=== PATIENT | male | born 1965 | race Caucasian/White ===

== ENCOUNTER → 2018-07-25 | Outpatient (CLI) | payer OTHER ==
[2018-07-25] MEDS: DIATRIZOATE MEGLUMINE 18% 300 ML SOLUTION. PO ONE (10:12)
--- NOTE | 2018-07-25 10:57 | RAD ---
Voiding cystourethrogram, 07/25/2018: History: Hematuria, bladder cramping A Henley catheter was placed in the bladder under aseptic conditions by nursing personnel. Contrast was then infused through the catheter into the bladder via gravity. Appropriate digital imaging was then obtained during filling and voiding. 2.4 minutes of fluoroscopy time was utilized. 12 static and dynamic fluoroscopic sequences were recorded. There is mild bladder wall irregularity primarily along the dome of the bladder. No discrete bladder mass is seen. There was no vesicoureteral reflux upon filling or voiding. The prostatic urethra is unremarkable. There is mild narrowing of the membranous urethra as it passes through the urogenital diaphragm. This is not unusual. The anterior urethra is widely patent. After voiding on the fluoroscopic table there was a moderate volume of residual urine in the bladder. The patient was then sent to the bathroom where he was able to nearly completely empty his bladder. The post voiding view demonstrates surgical clips in the scrotum, presumably due to a previous vastectomy. IMPRESSION: 1. Mild mural irregularity along the superior wall of the urinary bladder which may be inflammatory. Given the patient's history of hematuria, cystoscopic evaluation should be considered to exclude neoplasm. 2. Mild narrowing of the membranous urethra of doubtful significance.
== END | disposition home or self-care (01) ==
LOC: RAD 08:35
PROVIDERS: ATTEND Family Medicine
DX: N32.89 Other specified disorders of bladder (principal)
CPT/HCPCS: 74455

== ENCOUNTER 2018-08-19 10:22 | Outpatient (CLI) | payer OTHER ==
[~2018-08-19] VITALS: Ht 172.7 cm; Wt 66.2 kg
[~2018-08-19 10:22] MED LIST: ALLO100T PO; ASPI81TA50 PO; COLC0.6T34 PO; INDO50CA5 PO; LACT1CAP8 PO; METO50TA29 PO; TELM80TA PO; VERA240C2 PO
[2018-08-19 11:29] VITALS: BP 85/61
[2018-08-19] MEDS ORDERED: IOHEXOL 240 MG/ML 50ML VIAL. ONE (12:05)
[2018-08-19] MEDS ORDERED: LIDOCAINE WITH 8.4% SOD BICARB 3 ML DISP.SYRIN. INJ ONE (12:15)
[2018-08-19] MEDS ORDERED: LIDOCAINE WITH 8.4% SOD BICARB 3 ML DISP.SYRIN. ONE (12:15)
[2018-08-19] MEDS ORDERED: IOHEXOL 240 MG/ML 50ML VIAL. IJ ONE (12:45)
--- NOTE | 2018-08-20 12:21 | RAD ---
08/19/2018 1. Abscessogram 2. Replacement size of pelvic drainage catheter Discussion: The risks and benefits of the procedure were discussed the patient. Informed consent was obtained. Timeout procedure was performed. The patient was placed in the supine position on fluoroscopy table. The anterior pelvis was prepped and draped using sterile barrier technique. 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 The pre-existing drainage catheter has been intermittently clogging and leaking around the drain. Fluoroscopically the drain is normal in position. Its position was confirmed with CT scan. Recurrent gas and air within the collection. Gas is present within the collection prior to drain placement and remains concerning for fistula to the underlying bowel. Despite multiple attempts by him he has been unable to see urologists in the interim since discharge. A small amount of contrast administered into the drain delineating the cavity. A guidewire was advanced into the cavity over which the pre-existing drain was removed. Following dilatation a 14 Y[place]ut drainage catheter was placed. Its position was confirmed with contrast fluoroscopically. The new catheter was used to aspirate approximately 50 cc of turbid fluid. The drain was secured in place and sterile dressings were applied. Fluoroscopy time: 1.1 minutes. Dose area product: 3 gycm2 Impression: Exchange of drainage catheter, now 14 Y[place]ut in size. 50 cc of turbid fluid was aspirated. No immediate complications were identified. Plan is for patient to follow-up with urology at . His appointment is scheduled for September, will attempt to facilitate earlier visit. PQRS Compliance Statement: One or more of the following individualized dose reduction techniques were utilized for this examination: 1. Automated exposure control 2. Adjustment of the mA and/or kV according to patient size 3. Use of iterative reconstruction technique
== END 2018-08-19 12:48 | disposition home or self-care (01) ==
LOC: INTRAD 10:22
PROVIDERS: ATTEND Surgery
DX: T83.038A Leakage of other urinary catheter, initial encounter (principal); Y83.8 Other surgical procedures as the cause of abnormal reaction of the patient, or of later complication, without mention of misadventure at the time of the procedure; Y92.89 Other specified places as the place of occurrence of the external cause
CPT/HCPCS: 49423; 49424; 75984; 76080; C1729; C1894; Q9966

== ENCOUNTER → 2020-05-21 | Outpatient (CLI) | payer OTHER ==
[~2020-05-21] MED LIST changes: +INDO50CA15 PO; -INDO50CA5 PO
== END | disposition home or self-care (01) ==
LOC: LAB 14:15
PROVIDERS: ATTEND Surgery
DX: Z01.818 Encounter for other preprocedural examination (principal); Z11.59 Encounter for screening for other viral diseases; C44.91 Basal cell carcinoma of skin, unspecified
CPT/HCPCS: U0003-CS

== ENCOUNTER 2020-05-25 08:36 | Day surgery (SDC) | payer OTHER ==
[~2020-05-25] VITALS: Ht 167.6 cm; Wt 65.5 kg
[~2020-05-25 08:36] MED LIST changes: +LIDOCAINE 1%/EPI 1:100,000 20 ML VIAL. ONE
[2020-05-25] MEDS ORDERED: IV RINGERS,LACTATED 1000ML 1,000 ML IV SCH (09:30)
[2020-05-25] MEDS ORDERED: LIDOCAINE 2% PF 5 ML VIAL. ONE (09:42)
[2020-05-25] MEDS ORDERED: ONDANSETRON PF 4 MG/2 ML VIAL. ONE (09:42)
[2020-05-25] MEDS ORDERED: DEXAMETHASONE SOD PHOS 4 MG/ML VIAL ONE (09:42)
[2020-05-25] MEDS ORDERED: PROPOFOL 10 MG/ML (20ML) VIAL. IV ONE ×2 (09:42→13:22)
[2020-05-25] MEDS ORDERED: MIDAZOLAM HCL/PF 2 MG/2 ML VIAL. ONE (09:45)
--- NOTE | 2020-05-25 13:48 | PDOC4 ---
Operative Note Operative Note Operative Note: Preoperative Diagnosis: Left shoulder basal cell carcinoma Postoperative Diagnosis: Same Procedure: Excision of left shoulder basal cell carcinoma, 4 X 2.5 cm excised Surgeon: Demarco Anesthesia: Local MAC EBL: 10 mL Specimen: Left shoulder basal cell, stitch at superior margin Drains: None Complications: None Indication: The patient is a 54-year-old male who recently underwent a punch biopsy of a left shoulder skin lesion. The pathology confirmed a basal cell carcinoma and he was referred for excision. The plan is for excision of the lesion with clear margins. The risks of surgery were discussed. The risks include bleeding, infection, pain, scar tissue, potential need for additional surgery or procedure. He understands and would like to proceed. Description: The patient was taken the operating room and placed supine on the operating bed. Monitored anesthesia care was provided. The anterior left shoulder was prepped with ChloraPrep and draped in a standard surgical manner. The skin of the area was infiltrated with 1% lidocaine with epinephrine. An elliptical incision was made around the skin lesion using a scalpel. Care was taken to ensure fairly wide margins of the lesion. Sharp dissection was used for full-thickness excision of the involved specimen. The excised lesion measu red 4 x 2.5 cm. A stitch was used to negin the superior margin and it was sent to pathology for evaluation. Hemostasis was achieved with cautery. The skin was reapproximated with interrupted 4-0 nylon sutures. A sterile dressing was then applied. The patient tolerated the procedure well and was sent to the recovery room in stable condition. At the end of the case all counts were correct. NICHO WYLIE MD May 25, 2020 13:48
--- NOTE | 2020-05-25 13:50 | DISCH ---
DISCHARGE INSTRUCTIONS Condition on Discharge Condition on Discharge: Stable Activity After Discharge Activity Instructions for Disc: Resume previous activity Driving Instructions after Dis: Other, see below (no driving if taking pain meds) Diet after Discharge Diet after Discharge: Regular Wound Incision Care Wound/Incision Care: Other, see below (keep dressing clean and dry X 4 days, may then remove and shower, reapply as necessary) Follow-Up Follow up with: Dr Wylie in office in 1 week, call for appt [phone] NICHO WYLIE MD May 25, 2020 13:50
[2020-05-25 14:05] VITALS: BP 161/89
--- NOTE | 2020-05-26 17:06 | PATHOLOGY ---
[facility] Accession Number: [id number] . 01 Material submitted: . shoulder - LEFT SHOULDER SKIN LESION. Modifiers: left . 01 Clinical history: . Basal cell carcinoma . 02 Diagnosis: Skin and subcutaneous tissue, left shoulder lesion excision: - Basal cell carcinoma, superficial subtype. - Inked margins of excision free of neoplasm. - Focal dermal scarring and foreign body giant cell reaction consistent with previous biopsy site. (JPM:jacques; 05/26/2020) MBR 05/26/2020 1553 Local . 02 Electronically signed: . Cliff Martinez MD, Pathologist NPI- [id number] . 01 Gross description: . The specimen is received in formalin, labeled "Jaylyn Vazquez, left shoulder, stitch at superior margin". Received is an oriented ellipse of skin measuring 3.6 x 1.7 x 0.5 cm in greatest dimensions with a suture placed along one edge designating this as the superior margin (12:00). The surgical margins are inked as follows: 12 to 3:00-yellow, 3 to 9:00-black, and 9 to 12:00-blue. The epidermal surface displays a well-circumscribed, flat, flaky and pale oviedo lesion measuring 0.7 x 0.7 cm. The specimen is sectioned into 11 pieces and entirely submitted in cassettes A1 through A4, with the 3 and 9:00 aspects placed in cassette A4. (CAA; 05/25/2020) QAC/QAC 05/25/2020 1746 Local . 02 Pathologist provided ICD-10: C44.619 . 02 CPT . 528776 Specimen Comment: A courtesy copy of this report has been sent to [phone], [phone] Specimen Comment: [id number] Specimen Comment: Report sent to / DR ABDI Performed at: [address] [facility] [address], [place] [id number] MD Luiz Jansen MD Phone: [phone] Performed at: 02 [facility] [place] [address] [place], [place] [id number] MD Cliff Martinez MD Phone: [phone]
== END 2020-05-25 14:42 | disposition home or self-care (01) ==
LOC: SURG 08:36
PROVIDERS: ATTEND Surgery
DX: C44.619 Basal cell carcinoma of skin of left upper limb, including shoulder (principal); I10 Essential (primary) hypertension; Z90.49 Acquired absence of other specified parts of digestive tract; Z72.89 Other problems related to lifestyle; Z98.52 Vasectomy status
CPT/HCPCS: 11606; J0696; J2250; J2704; J3490; 88305; J1100; J2405

== ENCOUNTER 2022-03-02 10:02 | Inpatient (IN) | payer OTHER ==
[~2022-03-02] VITALS: Ht 170.2 cm; Wt 65.5 kg
[~2022-03-02 10:02] MED LIST changes: -LIDOCAINE 1%/EPI 1:100,000 20 ML VIAL. ONE
--- NOTE | 2022-03-02 10:49 | PHYS DOC ---
Past Medical History Past Medical History: Diverticulitis, GI Bleed, Hypertension, P.U.D., Renal Failure Additional Past Medical Histor: Gout Past Surgical History: Other Additional Past Surgical Histo: CYST REMOVAL, BLADDER SX, bowel resection with reversal Smoking Status: Never Smoker Alcohol Use: Sober Additional Information: Pt states sober x 14 weeks. General Adult EDM: Chief Complaint: HAND PROBLEM HPI: HPI: Patient is a 56-year-old male who presents today with right hand pain. While the nursing staff was doing the triage assessment of this patient it was found that the heart patient's heart rate was in the 120s to 130s, patient was then moved to room and placed on the monitoring and evaluation advisor. Patient states that his hand pain started on Sunday and that he has had no fever and chills related to it he says is related to his gout. But after talking with the patient further come to find out the patient was admitted to [facility] on January 23, 2022 after syncopal episode and patient was found to have a bleeding ulcer, he states that while in the hospital he required an EGD, and transfusions x2 units. Patient states he was also in the intensive care unit for couple days and intubated at that time. Patient states he saw his primary care physician last week Dr. Jacobs and his medications were adjusted due to his low blood pressures. Review of Systems: Review of Systems: Constitutional: Denies fever or chills. [] Eyes: Denies change in visual acuity. [] HENT: Denies nasal congestion or sore throat. [] Respiratory: Denies cough or shortness of breath. [] Cardiovascular: Denies chest pain or edema. [] GI: Denies abdominal pain, nausea, vomiting, bloody stools or diarrhea. [] : Denies dysuria. [] Musculoskeletal: Left hand pain and swelling Integument: Denies rash. [] Neurologic: Denies headache, focal weakness or sensory changes. [] Endocrine: Denies polyuria or polydipsia. [] Lymphatic: Denies swollen glands. [] Psychiatric: Denies depression or anxiety. [] Heart Score: C/O Chest Pain: No Risk Factors: Risk Factors: DM, Current or recent (<one month) smoker, HTN, HLP, family history of CAD, obesity. Risk Scores: Score 0 - 3: 2.5% MACE over next 6 weeks - Discharge Home Score 4 - 6: 20.3% MACE over next 6 weeks - Admit for Clinical Observation Score 7 - 10: 72.7% MACE over next 6 weeks - Early Invasive Strategies Allergies: Allergies: Allergies Coded Allergies Type Severity Reaction Last Updated Verified No Known Drug Allergies 05/25/20 No Physical Exam: PE: Constitutional: Well developed, well nourished, no acute distress, non-toxic appearance. [] HENT: Normocephalic, atraumatic, bilateral external ears normal, oropharynx moist, no oral exudates, nose normal. [] Eyes: PERRLA, EOMI, conjunctiva normal, no discharge. [] Neck: Normal range of motion, no tenderness, supple, no stridor. [] Cardiovascular:Heart rate regular rhythm, no murmur [] Lungs & Thorax: Bilateral breath sounds clear to auscultation [] Abdomen: Bowel sounds normal, soft, no tenderness, no masses, no pulsatile masses, well-healed scar from the umbilicus to the symphysis pubis noted Skin: Warm, dry, no erythema, no rash. [] Back: No tenderness, no CVA tenderness. [] Extremities: Right hand is swollen and reddened along the metacarpal joints, patient has decreased range of motion due to pain and swelling, cap refill is less than 2 seconds sensory is intact distal to the swelling and pain, peripheral pulses are 2+ Neurologic: Alert and oriented X 3, normal motor function, normal sensory function, no focal deficits noted. [] Psychologic: Affect normal, judgement normal, mood anxious. [] Current Patient Data: Labs: Laboratory Tests Test 03/02/22 11:14 White Blood Count 10.4 x10^3/uL Red Blood Count 3.08 x10^6/uL Hemoglobin 9.0 g/dL Hematocrit 27.4 % Mean Corpuscular Volume 89 fL Mean Corpuscular Hemoglobin 29 pg Mean Corpuscular Hemoglobin Concent 33 g/dL Red Cell Distribution Width 18.6 % Platelet Count 262 x10^3/uL Neutrophils (%) (Auto) 84 % Lymphocytes (%) (Auto) 8 % Monocytes (%) (Auto) 7 % Eosinophils (%) (Auto) 1 % Basophils (%) (Auto) 1 % Neutrophils # (Auto) 8.7 x10^3/uL Lymphocytes # (Auto) 0.8 x10^3/uL Monocytes # (Auto) 0.7 x10^3/uL Eosinophils # (Auto) 0.1 x10^3/uL Basophils # (Auto) 0.1 x10^3/uL Sodium Level 137 mmol/L Potassium Level 4.0 mmol/L Chloride Level 101 mmol/L Carbon Dioxide Level 22 mmol/L Anion Gap 14 Blood Urea Nitrogen 19 mg/dL Creatinine 1.7 mg/dL Estimated GFR (Cockcroft-Gault) 41.6 BUN/Creatinine Ratio 11 Glucose Level 111 mg/dL Lactic Acid Level 2.6 mmol/L Uric Acid 11.0 mg/dL Calcium Level 10.1 mg/dL Total Bilirubin 0.8 mg/dL Aspartate Amino Transf (AST/SGOT) 9 U/L Alanine Aminotransferase (ALT/SGPT) 10 U/L Alkaline Phosphatase 107 U/L Troponin I High Sensitivity 7 ng/L Total Protein 6.9 g/dL Albumin 2.6 g/dL Albumin/Globulin Ratio 0.6 Current Medications Medications (Trade) Dose Ordered Sig/Galdino Route PRN Reason Start Time Stop Time Status Last Admin Dose Admin Sodium Chloride 1,000 ml @ 999 mls/hr 1X ONCE IV 03/02/22 12:15 03/02/22 13:15 03/02/22 12:28 Fentanyl Citrate (Fentanyl 2ml Vial) 50 mcg 1X ONCE IVP 03/02/22 12:45 03/02/22 12:46 03/02/22 12:29 Vital Signs: Vital Signs Date Time Temp Pulse Resp B/P (MAP) Pulse Ox O2 Delivery O2 Flow Rate FiO2 03/02/22 12:30 116 18 113/84 (94) 100 Room Air 03/02/22 12:29 18 98 03/02/22 12:00 115 18 113/81 (92) 100 Room Air 03/02/22 11:30 114 18 111/85 (94) 100 Room Air 03/02/22 11:00 119 18 119/82 (94) 100 Room Air 03/02/22 10:32 121 20 115/79 (91) 100 Room Air 03/02/22 10:06 98.9 154 22 110/80 (90) 96 Room Air 98.9 Vital Signs Date Time Temp Pulse Resp B/P (MAP) Pulse Ox O2 Delivery O2 Flow Rate FiO2 03/02/22 12:29 18 98 03/02/22 10:32 121 20 115/79 (91) 100 Room Air 03/02/22 10:06 98.9 154 22 110/80 (90) 96 Room Air 98.9 Vital Signs Date Time Temp Pulse Resp B/P (MAP) Pulse Ox O2 Delivery O2 Flow Rate FiO2 03/02/22 10:06 98.9 154 22 110/80 (90) 96 Room Air 98.9 EKG: EKG: EKG done at [address] Mills at 1029 shows sinus tachycardia with no ectopy at a rate of 123 with a SD interval of 168 ms with a QTC of 414 no STEMI [] Radiology/Procedures: Radiology/Procedures: REASON: hand swelling. HX OF GOUT PROCEDURE: HAND LEFT 3V EXAM: PA, oblique and lateral views left hand DATE: 03/02/2022 10:40 AM INDICATION: Reason: hand swelling. HX OF GOUT / Spl. Instructions: / History: . COMPARISON: No Prior FINDINGS: No evidence of acute fracture or dislocation. Diffuse soft tissue swelling about the left long, index, and ring fingers. Advanced thumb CMC DJD. Scattered IP joint degenerative changes. Small juxta-articular erosion is suspected at the distal phalanx left index finger. Old/healed fracture fifth metacarpal shaft. Atherosclerotic vascular calcifications are seen. IMPRESSION: No acute fracture or dislocation. Diffuse soft tissue swelling about the digits as well as the extra articular erosion at the middle phalanx left index finger could be seen with crystalline arthropathy such as gout. Electronically signed by: Richard Lundy MD (03/02/2022 11:54 AM) [id number] REASON: tachycardia PROCEDURE: CHEST AP ONLY Single AP view of the chest. Comparison: 08/10/2018. Indication: Tachycardia Findings: Healed left midclavicular fractures are identified. Stable degenerative changes of bilateral shoulders. The heart is enlarged but stable. There is no pneumothorax or effusion. No air space or interstitial disease. Impression: 1. No acute cardiopulmonary process. Electronically signed by: Jayjay Barros MD (03/02/2022 11:43 AM) [id number] [] Course & Med Decision Making: Course & Med Decision Making Pertinent Labs and Imaging studies reviewed. (See chart for details) 1240 reviewed radiological and laboratory results with patient did express concern about the possibility of having cellulitis in his left hand, and admitting the patient for IV antibiotics is my recommendation, he is agreeable to the plan, Dr. Meadows was paged. Chiki Disclaimer: Chiki Disclaimer: This electronic medical record was generated, in whole or in part, using a voice recognition dictation system. Departure Departure Impression: Primary Impression: Cellulitis Qualified Codes: L03.114 - Cellulitis of left upper limb Admitting Physician: HIMS Condition: STABLE Referrals: NICOLETTE ABDI MD (PCP) NITA PALACIOS APRN Mar 02, 2022 10:49
[2022-03-02 11:25] LABS: BASO # 0.1 x10^3/uL (0.0-0.2); BASO % 1 % (0-3); EOS # 0.1 x10^3/uL (0.0-0.7); EOS % 1 % (0-3); HEMATOCRIT 27.4 % (39.0-53.0); LYMPH # 0.8 x10^3/uL (1.0-4.8); LYMPH % 8 % (24-48); MEAN CORPUSCULAR HEMOGLOBIN 29 pg (25-35); MEAN CORPUSCULAR HGB CONC 33 g/dL (31-37); MEAN CORPUSCULAR VOLUME 89 fL (79-100); MONO # 0.7 x10^3/uL (0.0-1.1); MONO % 7 % (0-9); NEUT # 8.7 x10^3/uL (1.8-7.7); NEUT % 84 % (31-73); PLATELET COUNT 262 x10^3/uL (140-400); RED BLOOD COUNT 3.08 x10^6/uL (4.30-5.70); RED CELL DISTRIBUTION WIDTH 18.6 % (11.5-14.5); WHITE BLOOD COUNT 10.4 x10^3/uL (4.0-11.0)
[2022-03-02 11:35] LABS: CALCIUM 10.1 mg/dL (8.5-10.1); CREATININE 1.7 mg/dL (0.7-1.3); GFR 41.6
[2022-03-02 11:41] LABS: ALBUMIN 2.6 g/dL (3.4-5.0); ALBUMIN/GLOBULIN RATIO 0.6 (1.0-1.7); TOTAL BILIRUBIN 0.8 mg/dL (0.2-1.0); TOTAL PROTEIN 6.9 g/dL (6.4-8.2)
--- NOTE | 2022-03-02 11:45 | RAD ---
Single AP view of the chest. Comparison: 08/10/2018. Indication: Tachycardia Findings: Healed left midclavicular fractures are identified. Stable degenerative changes of bilateral shoulder s. The heart is enlarged but stable. There is no pneumothorax or effusion. No air space or interstit ial disease. Impression: 1. No acute cardiopulmonary process. Electronically signed by: Jayjay Barros MD (03/02/2022 11:43 AM) [id number]
--- NOTE | 2022-03-02 11:56 | RAD ---
EXAM: PA, oblique and lateral views left hand DATE: 03/02/2022 10:40 AM INDICATION: Reason: hand swelling. HX OF GOUT / Spl. Instructions: / History: . COMPARISON: No Prior FINDINGS: No evidence of acute fracture or dislocation. Diffuse soft tissue swelling about the left long, index , and ring fingers. Advanced thumb CMC DJD. Scattered IP joint degenerative changes. Small juxta-isabel cular erosion is suspected at the distal phalanx left index finger. Old/healed fracture fifth metacar pal shaft. Atherosclerotic vascular calcifications are seen. IMPRESSION: No acute fracture or dislocation. Diffuse soft tissue swelling about the digits as well as the extra articular erosion at the middle ph alanx left index finger could be seen with crystalline arthropathy such as gout. Electronically signed by: Richard Lundy MD (03/02/2022 11:54 AM) [id number]
--- NOTE | 2022-03-02 12:12 | EKG ---
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
[2022-03-02] MEDS ORDERED: IV NORMAL SALINE 1000ML BAG 1,000 ML IV ONE ×3 (12:15→15:00)
[2022-03-02] MEDS ORDERED: fentaNYL PF VIAL 100 MCG/2 ML VIAL IVP ONE (12:45)
[2022-03-02] MEDS ORDERED: VANCOMYCIN 1.25 GM in IV NORMAL SALINE 250ML 250 ML IV ONE (13:00)
[2022-03-02] MEDS ORDERED: fentaNYL PF VIAL 100 MCG/2 ML VIAL IVP PRN (13:00)
--- NOTE | 2022-03-02 14:57 | PDOC1 ---
History and Physical Date of Admission Date of Admission DATE: 03/02/22 TIME: 14:48 Source Source: Chart review, Patient History of Present Illness History of Present Illness Mr. Vazquez, is a 56-year-old male admit with severe right hand and wrist pain. HAs known gout, takes no meds, He reports he was admitted to [facility] on January 23, 2022 after syncopal episode and patient was found to have a bleeding ulcer transfusions x2 units but was not D C onany new meds.s he compplains of leg weakness and would like an external cath placed, I asked him to try PT. He follows with Dr. Jacobs and his medications were adjusted due to his low bloo d pressures. 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, Past Medical History Cardiovascular: HTN Pulmonary: No pertinent hx GI: No pertinent hx Heme/Onc: No pertinent hx Psych: No pertinent hx Musculoskeletal: low back pain Infectious disease: No pertinent hx Renal/: No pertinent hx Past Surgical History Past Surgical History: Other Family History Family History: Hypertension Social History Smoke: No ALCOHOL: none Drugs: None Current Problem List Problem List Problems Medical Problems: (1) Cellulitis Status: Acute Current Medications Current Medications Current Medications Sodium Chloride 1,000 ml @ 999 mls/hr 1X ONCE IV Last administered on 03/02/22at 12:28; Start 03/02/22 at 12:15; Stop 03/02/22 at 13:15; Status DC Fentanyl Citrate (Fentanyl 2ml Vial) 50 mcg 1X ONCE IVP Last administered on 03/02/22at 12:29; Start 03/02/22 at 12:45; Stop 03/02/22 at 12:46; Status DC Vancomycin HCl (Vanco Per Pharmacy) 1 each PRN DAILY PRN MC SEE COMMENTS; Start 03/02/22 at 12:45 Vancomycin HCl 1.25 gm/Sodium Chloride 250 ml @ 166.667 mls/hr 1X ONCE IV Last administered on 03/02/22at 13:12; Start 03/02/22 at 13:00; Stop 03/02/22 at 14:29; Status DC Fentanyl Citrate (Fentanyl 2ml Vial) 50 mcg PRN Q2HR PRN IVP PAIN; Start 03/02/22 at 13:00; Stop 03/03/22 at 12:59 Febuxostat (Uloric) 40 mg DAILY PO ; Start 03/02/22 at 15:00 Active Scripts Active Reported Aspir-Low (Aspirin) 81 Mg Tablet.dr 1 Tab PO DAILY Indomethacin 50 Mg Capsule 1 Cap PO TID PRN Metoprolol Succinate 50 Mg Tab.er.24h 100 Mg PO DAILY Allergies Allergies: Coded Allergies: No Known Drug Allergies (Unverified , 05/25/20) ROS General: No: Chills, Night Sweats, Fatigue, Malaise, Appetite, Other PSYCHOLOGICAL ROS: No: Anxiety, Behavioral Disorder, Concentration difficultie, Decreased libido, Depression, Disorientation, Hallucinations, Hostility, Irritablity, Memory difficulties, Mood Swings, Obsessive thoughts, Physical abuse, Sexual abuse, Sleep disturbances, Suicidal ideation, Other Eyes: No Blurry vision, No Decreased vision, No Double vision, No Dry eyes, No Excessive tearing, No Eye Pain, No Itchy Eyes, No Loss of vision, No Photophobia, No Scotomata, No Uses contacts, No Uses glasses, No Other HEENT: No: Heacaches, Visual Changes, Hearing change, Nasal congestion, Nasal discharge, Oral lesions, Sinus pain, Sore Throat, Epistaxis, Sneezing, Snoring, Tinnitus, Vertigo, Vocal changes, Other Respiratory: No: Cough, Hemoptysis, Orthopnea, Pleuritic Pain, Shortness of breath, SOB with excertion, Sputum Changes, Stridor, Tachypnea, Wheezing, Other Cardiovascular: No Chest Pain, No Palpitations, No Orthopnea, No Paroxysmal Noc. Dyspnea, No Edema, No Lt Headedness, No Other Gastrointestinal: No Nausea, No Vomiting, No Abdominal Pain, No Diarrhea, No Constipation, No Melena, No Hematochezia, No Other Genitourinary: No Dysuria, No Frequency, No Incontinence, No Hematuria, No Retention, No Discharge, No Urgency, No Pain, No Flank Pain, No Other, No , No , No , No , No , No , No Musculoskeletal: Yes Gait Disturbance, Yes Joint Stiffness, Yes Muscular Weakness (legs), Yes Pain In: (left wrist, balls of feet, ); No Joint Pain, No Joint Swelling, No Muscle Pain, No Swelling In:, No Other Neurological: No Behavorial Changes, No Bowel/Bladder ControlChng, No Confusion, No Dizziness, No Gait Disturbance, No Headaches, No Impaired Coord/balance, No Memory Loss, No Numbness/Tingling, No Seizures, No Speech Problems, No Tremors, No Visual Changes, No Weakness, No Other Skin: Yes Eczema, Yes Rash; No Dry Skin, No Hair Changes, No Lumps, No Mole Changes, No Mottling, No Nail Changes, No Pruritus, No Skin Lesion Changes, No Other, No Acne Physical Exam General: Alert, Oriented X3 HEENT: Atraumatic, PERRLA Lungs: Clear to auscultation Heart: S1S2 Abdomen: Soft, No tenderness, Other (scars from 3 prior surg, 2 prior ostomy placements) Rectal Exam: not examined Extremities: Normal pulses, Other (left hand red, swollen, poor ROM wrist, ) Skin: No breakdown, Other (redness marked ot left wrist, splotchy, blanches) Neuro: Normal speech, Sensation intact Psych/Mental Status: Mental status NL, Mood NL Vitals Vitals Vital Signs Date Time Temp Pulse Resp B/P (MAP) Pulse Ox O2 Delivery O2 Flow Rate FiO2 03/02/22 12:30 116 18 113/84 (94) 100 Room Air 03/02/22 10:06 98.9 98.9 Labs Labs Laboratory Tests Test 03/02/22 11:14 White Blood Count 10.4 x10^3/uL (4.0-11.0) Red Blood Count 3.08 x10^6/uL (4.30-5.70) Hemoglobin 9.0 g/dL (13.0-17.5) Hematocrit 27.4 % (39.0-53.0) Mean Corpuscular Volume 89 fL (79-100) Mean Corpuscular Hemoglobin 29 pg (25-35) Mean Corpuscular Hemoglobin Concent 33 g/dL (31-37) Red Cell Distribution Width 18.6 % (11.5-14.5) Platelet Count 262 x10^3/uL (140-400) Neutrophils (%) (Auto) 84 % (31-73) Lymphocytes (%) (Auto) 8 % (24-48) Monocytes (%) (Auto) 7 % (0-9) Eosinophils (%) (Auto) 1 % (0-3) Basophils (%) (Auto) 1 % (0-3) Neutrophils # (Auto) 8.7 x10^3/uL (1.8-7.7) Lymphocytes # (Auto) 0.8 x10^3/uL (1.0-4.8) Monocytes # (Auto) 0.7 x10^3/uL (0.0-1.1) Eosinophils # (Auto) 0.1 x10^3/uL (0.0-0.7) Basophils # (Auto) 0.1 x10^3/uL (0.0-0.2) Sodium Level 137 mmol/L (136-145) Potassium Level 4.0 mmol/L (3.5-5.1) Chloride Level 101 mmol/L (98-107) Carbon Dioxide Level 22 mmol/L (21-32) Anion Gap 14 (6-14) Blood Urea Nitrogen 19 mg/dL (8-26) Creatinine 1.7 mg/dL (0.7-1.3) Estimated GFR (Cockcroft-Gault) 41.6 BUN/Creatinine Ratio 11 (6-20) Glucose Level 111 mg/dL (70-99) Lactic Acid Level 2.6 mmol/L (0.4-2.0) Uric Acid 11.0 mg/dL (3.5-7.2) Calcium Level 10.1 mg/dL (8.5-10.1) Total Bilirubin 0.8 mg/dL (0.2-1.0) Aspartate Amino Transf (AST/SGOT) 9 U/L (15-37) Alanine Aminotransferase (ALT/SGPT) 10 U/L (16-63) Alkaline Phosphatase 107 U/L (46-116) Troponin I High Sensitivity 7 ng/L (4-75) Total Protein 6.9 g/dL (6.4-8.2) Albumin 2.6 g/dL (3.4-5.0) Albumin/Globulin Ratio 0.6 (1.0-1.7) Laboratory Tests Test 03/02/22 11:14 White Blood Count 10.4 x10^3/uL (4.0-11.0) Red Blood Count 3.08 x10^6/uL (4.30-5.70) Hemoglobin 9.0 g/dL (13.0-17.5) Hematocrit 27.4 % (39.0-53.0) Mean Corpuscular Volume 89 fL (79-100) Mean Corpuscular Hemoglobin 29 pg (25-35) Mean Corpuscular Hemoglobin Concent 33 g/dL (31-37) Red Cell Distribution Width 18.6 % (11.5-14.5) Platelet Count 262 x10^3/uL (140-400) Neutrophils (%) (Auto) 84 % (31-73) Lymphocytes (%) (Auto) 8 % (24-48) Monocytes (%) (Auto) 7 % (0-9) Eosinophils (%) (Auto) 1 % (0-3) Basophils (%) (Auto) 1 % (0-3) Neutrophils # (Auto) 8.7 x10^3/uL (1.8-7.7) Lymphocytes # (Auto) 0.8 x10^3/uL (1.0-4.8) Monocytes # (Auto) 0.7 x10^3/uL (0.0-1.1) Eosinophils # (Auto) 0.1 x10^3/uL (0.0-0.7) Basophils # (Auto) 0.1 x10^3/uL (0.0-0.2) Sodium Level 137 mmol/L (136-145) Potassium Level 4.0 mmol/L (3.5-5.1) Chloride Level 101 mmol/L (98-107) Carbon Dioxide Level 22 mmol/L (21-32) Anion Gap 14 (6-14) Blood Urea Nitrogen 19 mg/dL (8-26) Creatinine 1.7 mg/dL (0.7-1.3) Estimated GFR (Cockcroft-Gault) 41.6 BUN/Creatinine Ratio 11 (6-20) Glucose Level 111 mg/dL (70-99) Lactic Acid Level 2.6 mmol/L (0.4-2.0) Uric Acid 11.0 mg/dL (3.5-7.2) Calcium Level 10.1 mg/dL (8.5-10.1) Total Bilirubin 0.8 mg/dL (0.2-1.0) Aspartate Amino Transf (AST/SGOT) 9 U/L (15-37) Alanine Aminotransferase (ALT/SGPT) 10 U/L (16-63) Alkaline Phosphatase 107 U/L (46-116) Troponin I High Sensitivity 7 ng/L (4-75) Total Protein 6.9 g/dL (6.4-8.2) Albumin 2.6 g/dL (3.4-5.0) Albumin/Globulin Ratio 0.6 (1.0-1.7) VTE Prophylaxis Ordered VTE Prophylaxis Devices: No VTE Pharmacological Prophylaxi: Yes Assessment/Plan Assessment/Plan left hand and wrist celluliit,s IV vanco Hx GOUT< uric acid high, consult ortho, prob may have startd with gout, Give cochicine and uloric, Htn, metoprolol, would wean off, not best choice for monotherapy,. 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
[2022-03-02 15:00] VITALS: BP 107/76
[2022-03-02] MEDS ORDERED: COLCHICINE 0.6 MG TABLET PO ONE (15:00)
[2022-03-02] MEDS: VANCOMYCIN PER PHARMACY MC PRN (15:01)
[2022-03-02] MEDS: FEBUXOSTAT 40 MG TABLET PO SCH (15:39)
[2022-03-02] MEDS ORDERED: ACETAMINOPHEN 325 MG TABLET. PO PRN (16:15)
[2022-03-02] MEDS: FERROUS SULFATE ORAL 300 MG/5 ML SOLUTION. PO SCH (16:29)
--- NOTE | 2022-03-02 17:17 | PDOC2 ---
CONSULT Date of Consult Date of Consult DATE: 03/02/22 TIME: 16:53 Reason for Consult Reason for Consult: L hand swelling/pain/cellulitis Identification/Chief Complaint Chief Complaint L hand pain/swelling/unable to use History of Present Illness Reason for Visit: Patient reports that he started having pain and swelling in his left hand on February 27, 2022. He denies any injury to the hand and says he is not sure why it started hurting and swelling. He thought that it would just go away on its own but it continued to get worse. He presented to the emergency room at [facility] today for treatment of it because it continued to bother him. He denies any fevers at home but says that he was having chills, he is not exactly sure when this started. He denies any numbness or tingling or radicular symptoms in the hand. No other areas of concern today. The patient reports that about a month ago he was admitted at [facility] for a stomach ulcer. He was having black stools and stomach pain and was found to have an ulcer that he says was cauterized. His symptoms for that have resolved since he left the hospital. Past Medical History Past Medical History Significant for hypertension. The chart is positive for gout but the patient does not mention this. 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 He then had a partial colon resection and then finally a reattachment of his colon. Is also had right elbow reconstruction, left ACL reconstruction, gallbladder removal, appendectomy and recent stomach ulcer cauterization. Past Surgical History: Other Family History Family History Patient reports that his niece had blood clots in her legs that she from. Family History: Hypertension Social History Social History Patient reports that he chews about a can of tobacco a week and has for approximately 48 years. He reports that he quit drinking alcohol about 14 weeks ago without formal treatment. He has been in formal alcohol treatment in the past. He says that prior to quitting, he drank a lot and does not quantify further. He denies drug use. He lives at home in the community. He does not w ork. No ALCOHOL: none Drugs: None Lives: with Family Current Problem List Problem List Problems Medical Problems: (1) Cellulitis Status: Acute Current Medications Current Medications Home medications per the patient are magnesium and a blood pressure medicine, unknown name. He says that his metoprolol was stopped at his recent primary care visit. Current Medications Sodium Chloride 1,000 ml @ 999 mls/hr 1X ONCE IV Last administered on 03/02/22at 12:28; Start 03/02/22 at 12:15; Stop 03/02/22 at 13:15; Status DC Fentanyl Citrate (Fentanyl 2ml Vial) 50 mcg 1X ONCE IVP Last administered on 03/02/22at 12:29; Start 03/02/22 at 12:45; Stop 03/02/22 at 12:46; Status DC Vancomycin HCl (Vanco Per Pharmacy) 1 each PRN DAILY PRN MC SEE COMMENTS Last administered on 03/02/22at 15:01; Start 03/02/22 at 12:45 Vancomycin HCl 1.25 gm/Sodium Chloride 250 ml @ 166.667 mls/hr 1X ONCE IV Last administered on 03/02/22at 13:12; Start 03/02/22 at 13:00; Stop 03/02/22 at 14:29; Status DC Fentanyl Citrate (Fentanyl 2ml Vial) 50 mcg PRN Q2HR PRN IVP PAIN; Start 03/02/22 at 13:00; Stop 03/03/22 at 12:59 Febuxostat (Uloric) 40 mg DAILY PO Last administered on 03/02/22at 15:39; Start 03/02/22 at 15:00 Metoprolol Succinate (Toprol Xl) 100 mg DAILY PO ; Start 03/03/22 at 09:00; Stop 03/02/22 at 14:57; Status DC Colchicine (Colcrys) 0.6 mg 1X ONCE PO Last administered on 03/02/22at 15:39; Start 03/02/22 at 15:00; Stop 03/02/22 at 15:01; Status DC Colchicine (Colcrys) 0.6 mg DAILY PO ; Start 03/03/22 at 09:00 Famotidine (Pepcid) 20 mg QHS PO ; Start 03/02/22 at 21:00 Metoprolol Succinate (Toprol Xl) 50 mg DAILY PO ; Start 03/03/22 at 09:00 Sodium Chloride 1,000 ml @ 125 mls/hr 1X ONCE IV Last administered on at 15:40; Start 03/02/22 at 15:00; Stop 03/02/22 at 22:59 Sodium Chloride 1,000 ml @ 1,000 mls/hr 1X ONCE IV Last administered on 03/02/22at 15:40; Start 03/02/22 at 15:00; Stop 03/02/22 at 15:59; Status DC Vancomycin HCl 1 gm/Sodium Chloride 250 ml @ 250 mls/hr Q24H IV ; Start 03/03/22 at 13:00 Vancomycin HCl (Vancomycin Trough Level) 1 each 1X ONCE MC ; Start 03/04/22 at 12:30; Stop 03/04/22 at 12:31 Enoxaparin Sodium (Lovenox Per Pharmacy Prophylaxis Dosing) 1 each PRN DAILY PRN MC SEE COMMENTS; Start 03/02/22 at 15:00 Vitamin B Complex/ Vitamin C (Maddi-Luisito) 1 tab DAILY PO ; Start 03/03/22 at 09:00 Ferrous Sulfate (Iron Oral Solution) 300 mg DAILYBFRSUP PO ; Start 03/02/22 at 17:00 Acetaminophen (Tylenol) 650 mg PRN Q6HRS PRN PO MILD PAIN / TEMP > 100.3'F; Start 03/02/22 at 16:15 Active Scripts Active Reported Aspir-Low (Aspirin) 81 Mg Tablet.dr 1 Tab PO DAILY Indomethacin 50 Mg Capsule 1 Cap PO TID PRN Metoprolol Succinate 50 Mg Tab.er.24h 100 Mg PO DAILY Allergies Allergies: Coded Allergies: No Known Drug Allergies (Unverified , 05/25/20) ROS Review of System Patient denies headache. He denies any blurry vision or double vision. No ringing in the ears or difficulty hearing. No difficulty swallowing. No thyroid problems or diabetes. No chest pain or shortness of breath. No nausea or vomiting. He has had pain in his abdomen from his recent stomach ulcer but that has resolved. He has had blood in his stool but that has resolved after his ulcer was cauterized. No blood in the urine. No constipation or diarrhea. No dysuria. No psychiatric illnesses. General: YES: Chills Physical Exam Physical Exam Patient is a 56-year-old man who appears well-developed, well-nourished and in no acute distress. He appears slightly diaphoretic. He interacts with exam appropriately and is alert and oriented x3. He is left-hand dominant. The left hand has intact skin. He does have scattered scars on the dorsum of the hand. There is moderate swelling and erythema in the dorsum of the hand. Specifically he does have erythema over the distal ulna. He has significant swelling in the long finger. The patient will not allow any passive range of motion of his fingers hand or wrist due to pain. There is warmth from the hand when compared to the contralateral side. There is no swelling or erythema in the palm of the hand or the flexor surfaces of the fingers. 2+ radial and 2+ ulnar pulses. Normal sensation to light touch throughout the hand. He will not move his hand for evaluation of his motor function. The patient does guard his hand significantly. Vitals VITALS Vital Signs Date Time Temp Pulse Resp B/P (MAP) Pulse Ox O2 Delivery O2 Flow Rate FiO2 03/02/22 15:00 100.8 122 18 107/76 (86) Room Air 100.8 03/02/22 12:30 100 Labs Labs Laboratory Tests Test 03/02/22 11:14 03/02/22 15:39 White Blood Count 10.4 x10^3/uL (4.0-11.0) Red Blood Count 3.08 x10^6/uL (4.30-5.70) Hemoglobin 9.0 g/dL (13.0-17.5) Hematocrit 27.4 % (39.0-53.0) Mean Corpuscular Volume 89 fL (79-100) Mean Corpuscular Hemoglobin 29 pg (25-35) Mean Corpuscular Hemoglobin Concent 33 g/dL (31-37) Red Cell Distribution Width 18.6 % (11.5-14.5) Platelet Count 262 x10^3/uL (140-400) Neutrophils (%) (Auto) 84 % (31-73) Lymphocytes (%) (Auto) 8 % (24-48) Monocytes (%) (Auto) 7 % (0-9) Eosinophils (%) (Auto) 1 % (0-3) Basophils (%) (Auto) 1 % (0-3) Neutrophils # (Auto) 8.7 x10^3/uL (1.8-7.7) Lymphocytes # (Auto) 0.8 x10^3/uL (1.0-4.8) Monocytes # (Auto) 0.7 x10^3/uL (0.0-1.1) Eosinophils # (Auto) 0.1 x10^3/uL (0.0-0.7) Basophils # (Auto) 0.1 x10^3/uL (0.0-0.2) Sodium Level 137 mmol/L (136-145) Potassium Level 4.0 mmol/L (3.5-5.1) Chloride Level 101 mmol/L (98-107) Carbon Dioxide Level 22 mmol/L (21-32) Anion Gap 14 (6-14) Blood Urea Nitrogen 19 mg/dL (8-26) Creatinine 1.7 mg/dL (0.7-1.3) Estimated GFR (Cockcroft-Gault) 41.6 BUN/Creatinine Ratio 11 (6-20) Glucose Level 111 mg/dL (70-99) Lactic Acid Level 2.6 mmol/L (0.4-2.0) 1.4 mmol/L (0.4-2.0) Uric Acid 11.0 mg/dL (3.5-7.2) Calcium Level 10.1 mg/dL (8.5-10.1) Total Bilirubin 0.8 mg/dL (0.2-1.0) Aspartate Amino Transf (AST/SGOT) 9 U/L (15-37) Alanine Aminotransferase (ALT/SGPT) 10 U/L (16-63) Alkaline Phosphatase 107 U/L (46-116) Troponin I High Sensitivity 7 ng/L (4-75) Total Protein 6.9 g/dL (6.4-8.2) Albumin 2.6 g/dL (3.4-5.0) Albumin/Globulin Ratio 0.6 (1.0-1.7) Laboratory Tests Test 03/02/22 11:14 03/02/22 15:39 White Blood Count 10.4 x10^3/uL (4.0-11.0) Red Blood Count 3.08 x10^6/uL (4.30-5.70) Hemoglobin 9.0 g/dL (13.0-17.5) Hematocrit 27.4 % (39.0-53.0) Mean Corpuscular Volume 89 fL (79-100) Mean Corpuscular Hemoglobin 29 pg (25-35) Mean Corpuscular Hemoglobin Concent 33 g/dL (31-37) Red Cell Distribution Width 18.6 % (11.5-14.5) Platelet Count 262 x10^3/uL (140-400) Neutrophils (%) (Auto) 84 % (31-73) Lymphocytes (%) (Auto) 8 % (24-48) Monocytes (%) (Auto) 7 % (0-9) Eosinophils (%) (Auto) 1 % (0-3) Basophils (%) (Auto) 1 % (0-3) Neutrophils # (Auto) 8.7 x10^3/uL (1.8-7.7) Lymphocytes # (Auto) 0.8 x10^3/uL (1.0-4.8) Monocytes # (Auto) 0.7 x10^3/uL (0.0-1.1) Eosinophils # (Auto) 0.1 x10^3/uL (0.0-0.7) Basophils # (Auto) 0.1 x10^3/uL (0.0-0.2) Sodium Level 137 mmol/L (136-145) Potassium Level 4.0 mmol/L (3.5-5.1) Chloride Level 101 mmol/L (98-107) Carbon Dioxide Level 22 mmol/L (21-32) Anion Gap 14 (6-14) Blood Urea Nitrogen 19 mg/dL (8-26) Creatinine 1.7 mg/dL (0.7-1.3) Estimated GFR (Cockcroft-Gault) 41.6 BUN/Creatinine Ratio 11 (6-20) Glucose Level 111 mg/dL (70-99) Lactic Acid Level 2.6 mmol/L (0.4-2.0) 1.4 mmol/L (0.4-2.0) Uric Acid 11.0 mg/dL (3.5-7.2) Calcium Level 10.1 mg/dL (8.5-10.1) Total Bilirubin 0.8 mg/dL (0.2-1.0) Aspartate Amino Transf (AST/SGOT) 9 U/L (15-37) Alanine Aminotransferase (ALT/SGPT) 10 U/L (16-63) Alkaline Phosphatase 107 U/L (46-116) Troponin I High Sensitivity 7 ng/L (4-75) Total Protein 6.9 g/dL (6.4-8.2) Albumin 2.6 g/dL (3.4-5.0) Albumin/Globulin Ratio 0.6 (1.0-1.7) Images Images Reviewed x-rays of the left hand that were taken from the emergency room. Assessment/Plan Assessment/Plan Left hand pain and swelling with erythema, his whole clinical picture supports infection. Tobacco abuse Recent hospitalization for stomach ulcer Alcohol abuse Hypertension Tachycardia since he has been to the hospital I discussed the patient's clinical presentation and exam with Dr. Aleman who agrees to get an MRI of the left hand today. We will review that once it is available to make sure there is no extension into the flexor surface as far as the infection goes. There was no fluctuance or specific abscess seen on exam but the MRI will help us differentiate that as well. We will keep him n.p.o. after midnight and will see him tomorrow morning. We have consulted infectious disease. We have ordered serial lab work to follow as well. Hopefully, we will not have to intervene surgically but will have more information after his MRI is done. His plan was communicated with his nurse and she will pass it along in report to the nurses gold. Please call orthopedics if the patient worsens. ASHLY POTTER Mar 02, 2022 17:17
[2022-03-02 19:30] VITALS: BP 106/75
[2022-03-02] MEDS: FAMOTIDINE 20 MG TABLET. PO SCH (21:32)
--- NOTE | 2022-03-02 21:56 | RAD ---
Study: MRI of the left hand without contrast INDICATION: Left hand infection. Abscess evaluation. COMPARISON: Radiographs from 03/02/2022 TECHNIQUE: Multiplanar MR imaging of the left hand performed without contrast. FINDINGS: Confluent fluid attenuation along the dorsal half of the abductor digiti minimi muscle. The muscle be lly itself is minimally edematous at its base. Subcutaneous edema/fluid signal mainly along the dorsu m of the hand and wrist and most confluent along the metacarpals. Small volume extensor tendon sheath fluid with the exception of the first compartment. Peritendinous edema/fluid along the extensors mor e distally. No significant fluid distention on the flexor tendon sheaths and with less pronounced fle xor peritendinous edema along the hand compared to the extensors. Wrist and distal radioulnar joint e ffusions which are small/moderate and with synovitis. Small joint effusions and mild synovitis primarily at the index, long and little finger MCP joints an d long finger PIP joint. Severe thumb CMC arthrosis. Joint space narrowing at the index and long finger MCP joints. Multifocal interphalangeal joint arthrosis greatest at the index finger DIP joint. Distal radioulnar joint arth rosis. No signal changes of osteomyelitis. No aggressive erosion. IMPRESSION: 1. The study is limited in its ability to detect an abscess without intravenous contrast. 2. Confluent fluid signal centered along the dorsal half of the abductor digiti minimi the sterility of which is uncertain. There is also edema and fluid signal primarily along the dorsum of the hand d own to the wrist and greatest along the metacarpals. This is indeterminate for bland edema, celluliti s or phlegmonous change which are not able to be differentiated by noncontrast MRI. Small/moderate wr ist and DRUJ effusions with synovitis. It is uncertain how much fluid is present as synovial thickeni ng cannot be differentiated from fluid. No signal changes of osteomyelitis. If there is concern for s eptic arthritis or an abscess, ultrasound could assess for a drainable fluid collection and determine how much fluid is present within the joint spaces. 3. Small joint effusions/synovitis primarily involving the index, long and little finger MCP joints and the long finger PIP joint also sterility indeterminant. 4. Multifocal arthrosis which is severe at the thumb CMC joint. Electronically signed by: SHER DAY MD (03/02/2022 9:53 PM) [id number]
[2022-03-02 23:00] VITALS: BP 108/64
[2022-03-03 03:00] VITALS: BP 106/78
[2022-03-03 06:17] LABS: BASO % 1 % (0-3); EOS # 0.2 x10^3/uL (0.0-0.7); EOS % 2 % (0-3); HEMATOCRIT 22.9 % (39.0-53.0); HEMOGLOBIN 7.5 g/dL (13.0-17.5); LYMPH # 0.8 x10^3/uL (1.0-4.8); LYMPH % 10 % (24-48); MEAN CORPUSCULAR HEMOGLOBIN 29 pg (25-35); MEAN CORPUSCULAR HGB CONC 33 g/dL (31-37); MEAN CORPUSCULAR VOLUME 89 fL (79-100); MONO # 0.7 x10^3/uL (0.0-1.1); MONO % 8 % (0-9); NEUT # 6.3 x10^3/uL (1.8-7.7); NEUT % 79 % (31-73); PLATELET COUNT 218 x10^3/uL (140-400); RED BLOOD COUNT 2.58 x10^6/uL (4.30-5.70); RED CELL DISTRIBUTION WIDTH 18.7 % (11.5-14.5)
[2022-03-03 07:00] VITALS: BP 108/81
[2022-03-03 07:18] LABS: ALBUMIN 1.9 g/dL (3.4-5.0); ALBUMIN/GLOBULIN RATIO 0.5 (1.0-1.7); CREATININE 1.4 mg/dL (0.7-1.3); GFR 52.1; POTASSIUM 3.5 mmol/L (3.5-5.1); TOTAL BILIRUBIN 0.5 mg/dL (0.2-1.0); TOTAL PROTEIN 6.1 g/dL (6.4-8.2)
[2022-03-03] MEDS: FOLIC/VIT B COMP W-C (RENAL) TABLET. PO SCH (08:51)
[2022-03-03] MEDS: FEBUXOSTAT 40 MG TABLET PO SCH (08:52)
[2022-03-03] MEDS: COLCHICINE 0.6 MG TABLET PO SCH (08:52)
[2022-03-03] MEDS: METOPROLOL SUCC 24HR ER 50 MG TAB.ER.24H. PO SCH (08:53)
[2022-03-03] MEDS ORDERED: METOPROLOL SUCC 24HR ER 50 MG TAB.ER.24H. PO SCH (09:00)
--- NOTE | 2022-03-03 09:40 | PDOC ---
PROGRESS NOTES Date of Service DATE: 03/03/22 TIME: 09:32 Subjective Subjective Problems overnight: Objective Vital Signs Vital Signs Date Time Temp Pulse Resp B/P (MAP) Pulse Ox O2 Delivery O2 Flow Rate FiO2 03/03/22 08:53 107 108/81 03/03/22 08:00 Room Air 03/03/22 07:00 99.4 18 97 99.4 Labs Laboratory Tests Test 03/02/22 11:14 03/02/22 15:39 03/02/22 21:30 03/03/22 05:45 White Blood Count 10.4 x10^3/uL (4.0-11.0) 8.0 x10^3/uL (4.0-11.0) Red Blood Count 3.08 x10^6/uL (4.30-5.70) 2.58 x10^6/uL (4.30-5.70) Hemoglobin 9.0 g/dL (13.0-17.5) 7.5 g/dL (13.0-17.5) Hematocrit 27.4 % (39.0-53.0) 22.9 % (39.0-53.0) Mean Corpuscular Volume 89 fL (79-100) 89 fL (79-100) Mean Corpuscular Hemoglobin 29 pg (25-35) 29 pg (25-35) Mean Corpuscular Hemoglobin Concent 33 g/dL (31-37) 33 g/dL (31-37) Red Cell Distribution Width 18.6 % (11.5-14.5) 18.7 % (11.5-14.5) Platelet Count 262 x10^3/uL (140-400) 218 x10^3/uL (140-400) Neutrophils (%) (Auto) 84 % (31-73) 79 % (31-73) Lymphocytes (%) (Auto) 8 % (24-48) 10 % (24-48) Monocytes (%) (Auto) 7 % (0-9) 8 % (0-9) Eosinophils (%) (Auto) 1 % (0-3) 2 % (0-3) Basophils (%) (Auto) 1 % (0-3) 1 % (0-3) Neutrophils # (Auto) 8.7 x10^3/uL (1.8-7.7) 6.3 x10^3/uL (1.8-7.7) Lymphocytes # (Auto) 0.8 x10^3/uL (1.0-4.8) 0.8 x10^3/uL (1.0-4.8) Monocytes # (Auto) 0.7 x10^3/uL (0.0-1.1) 0.7 x10^3/uL (0.0-1.1) Eosinophils # (Auto) 0.1 x10^3/uL (0.0-0.7) 0.2 x10^3/uL (0.0-0.7) Basophils # (Auto) 0.1 x10^3/uL (0.0-0.2) 0.0 x10^3/uL (0.0-0.2) Sodium Level 137 mmol/L (136-145) 138 mmol/L (136-145) Potassium Level 4.0 mmol/L (3.5-5.1) 3.5 mmol/L (3.5-5.1) Chloride Level 101 mmol/L (98-107) 108 mmol/L (98-107) Carbon Dioxide Level 22 mmol/L (21-32) 20 mmol/L (21-32) Anion Gap 14 (6-14) 10 (6-14) Blood Urea Nitrogen 19 mg/dL (8-26) 13 mg/dL (8-26) Creatinine 1.7 mg/dL (0.7-1.3) 1.4 mg/dL (0.7-1.3) Estimated GFR (Cockcroft-Gault) 41.6 52.1 BUN/Creatinine Ratio 11 (6-20) 9 (6-20) Glucose Level 111 mg/dL (70-99) 101 mg/dL (70-99) Lactic Acid Level 2.6 mmol/L (0.4-2.0) 1.4 mmol/L (0.4-2.0) 0.6 mmol/L (0.4-2.0) Uric Acid 11.0 mg/dL (3.5-7.2) Calcium Level 10.1 mg/dL (8.5-10.1) 9.0 mg/dL (8.5-10.1) Total Bilirubin 0.8 mg/dL (0.2-1.0) 0.5 mg/dL (0.2-1.0) Aspartate Amino Transf (AST/SGOT) 9 U/L (15-37) 7 U/L (15-37) Alanine Aminotransferase (ALT/SGPT) 10 U/L (16-63) 6 U/L (16-63) Alkaline Phosphatase 107 U/L (46-116) 79 U/L (46-116) Troponin I High Sensitivity 7 ng/L (4-75) Total Protein 6.9 g/dL (6.4-8.2) 6.1 g/dL (6.4-8.2) Albumin 2.6 g/dL (3.4-5.0) 1.9 g/dL (3.4-5.0) Albumin/Globulin Ratio 0.6 (1.0-1.7) 0.5 (1.0-1.7) Prothrombin Time 15.0 SEC (11.7-14.0) Prothromb Time International Ratio 1.2 (0.8-1.1) Activated Partial Thromboplast Time 47 SEC (24-38) Erythrocyte Sedimentation Rate > 130 (0-15) C-Reactive Protein, Quantitative 195.5 mg/L (0-3.3) Laboratory Tests Test 03/02/22 11:14 03/02/22 15:39 03/02/22 21:30 03/03/22 05:45 White Blood Count 10.4 x10^3/uL (4.0-11.0) 8.0 x10^3/uL (4.0-11.0) Red Blood Count 3.08 x10^6/uL (4.30-5.70) 2.58 x10^6/uL (4.30-5.70) Hemoglobin 9.0 g/dL (13.0-17.5) 7.5 g/dL (13.0-17.5) Hematocrit 27.4 % (39.0-53.0) 22.9 % (39.0-53.0) Mean Corpuscular Volume 89 fL (79-100) 89 fL (79-100) Mean Corpuscular Hemoglobin 29 pg (25-35) 29 pg (25-35) Mean Corpuscular Hemoglobin Concent 33 g/dL (31-37) 33 g/dL (31-37) Red Cell Distribution Width 18.6 % (11.5-14.5) 18.7 % (11.5-14.5) Platelet Count 262 x10^3/uL (140-400) 218 x10^3/uL (140-400) Neutrophils (%) (Auto) 84 % (31-73) 79 % (31-73) Lymphocytes (%) (Auto) 8 % (24-48) 10 % (24-48) Monocytes (%) (Auto) 7 % (0-9) 8 % (0-9) Eosinophils (%) (Auto) 1 % (0-3) 2 % (0-3) Basophils (%) (Auto) 1 % (0-3) 1 % (0-3) Neutrophils # (Auto) 8.7 x10^3/uL (1.8-7.7) 6.3 x10^3/uL (1.8-7.7) Lymphocytes # (Auto) 0.8 x10^3/uL (1.0-4.8) 0.8 x10^3/uL (1.0-4.8) Monocytes # (Auto) 0.7 x10^3/uL (0.0-1.1) 0.7 x10^3/uL (0.0-1.1) Eosinophils # (Auto) 0.1 x10^3/uL (0.0-0.7) 0.2 x10^3/uL (0.0-0.7) Basophils # (Auto) 0.1 x10^3/uL (0.0-0.2) 0.0 x10^3/uL (0.0-0.2) Sodium Level 137 mmol/L (136-145) 138 mmol/L (136-145) Potassium Level 4.0 mmol/L (3.5-5.1) 3.5 mmol/L (3.5-5.1) Chloride Level 101 mmol/L (98-107) 108 mmol/L (98-107) Carbon Dioxide Level 22 mmol/L (21-32) 20 mmol/L (21-32) Anion Gap 14 (6-14) 10 (6-14) Blood Urea Nitrogen 19 mg/dL (8-26) 13 mg/dL (8-26) Creatinine 1.7 mg/dL (0.7-1.3) 1.4 mg/dL (0.7-1.3) Estimated GFR (Cockcroft-Gault) 41.6 52.1 BUN/Creatinine Ratio 11 (6-20) 9 (6-20) Glucose Level 111 mg/dL (70-99) 101 mg/dL (70-99) Lactic Acid Level 2.6 mmol/L (0.4-2.0) 1.4 mmol/L (0.4-2.0) 0.6 mmol/L (0.4-2.0) Uric Acid 11.0 mg/dL (3.5-7.2) Calcium Level 10.1 mg/dL (8.5-10.1) 9.0 mg/dL (8.5-10.1) Total Bilirubin 0.8 mg/dL (0.2-1.0) 0.5 mg/dL (0.2-1.0) Aspartate Amino Transf (AST/SGOT) 9 U/L (15-37) 7 U/L (15-37) Alanine Aminotransferase (ALT/SGPT) 10 U/L (16-63) 6 U/L (16-63) Alkaline Phosphatase 107 U/L (46-116) 79 U/L (46-116) Troponin I High Sensitivity 7 ng/L (4-75) Total Protein 6.9 g/dL (6.4-8.2) 6.1 g/dL (6.4-8.2) Albumin 2.6 g/dL (3.4-5.0) 1.9 g/dL (3.4-5.0) Albumin/Globulin Ratio 0.6 (1.0-1.7) 0.5 (1.0-1.7) Prothrombin Time 15.0 SEC (11.7-14.0) Prothromb Time International Ratio 1.2 (0.8-1.1) Activated Partial Thromboplast Time 47 SEC (24-38) Erythrocyte Sedimentation Rate > 130 (0-15) C-Reactive Protein, Quantitative 195.5 mg/L (0-3.3) Assessment Assessment POD# Plan Plan of Care Pt seen, laying in bed comfortably. Pt denies any problems overnight. Feels like the antibiotics are working. He says that he can use his left hand more but he is concerned that this is moving to his R hand. He has noticed pain and swelling on the MCP joint of the index finger on his R hand since last night and feels like it is worse today. No N/T or radicular symptoms. L hand has intact skin. Erythema and swelling have shown improvement since evaluation yesterday afternoon. Patient will let me passively move his fingers move. Still warm on the dorsum of the hand. The flexors/palm of hand and volar aspect of wrist/forearm all benign. NVI in the fingers. The R hand has intact skin. There is swelling and TTP in the index finger. He will allow me to passively move the index finger but is protective of this. No erythema or warmth right now. This appears to be isolated to the index finger of the right hand at this time. NVI. Overall the patient has improved so we will not go to the OR today. MRI reviewed, no specific abscess seen. Since he has shown improvement, we will wait on any further imaging. Pt denies any FH of rheumatoid arthritis but we will check rheumatoid factor. Can have full work up outpatient if needed. Will wait for ID consult as well. OK to eat today. Ortho will be available if needed but there is no indication now for surgery. Please call us immediately if patient declines. OK to get in the shower. Discussed with Dr. Aleman. Justicifation of Admission Dx: Justifications for Admission: Justification of Admission Dx: Yes ASHLY POTTER Mar 03, 2022 09:40
[2022-03-03 10:38] VITALS: BP 114/82
--- NOTE | 2022-03-03 12:21 | PDOC ---
[facility] PROGRESS NOTE Date of Service DOS: DATE: 03/03/22 TIME: 12:19 Chief Complaint Chief Complaint left hand and wrist celluliit,s IV vanco Hx GOUT< uric acid high, consult ortho, prob may have startd with gout, Give cochicine and uloric, Htn, metoprolol, would wean off, not best choice for monotherapy,. 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 As needed pain control. ID consult. Continue gout treatment. Vitals/I&O Vitals/I&O: Vital Signs Date Time Temp Pulse Resp B/P (MAP) Pulse Ox O2 Delivery O2 Flow Rate FiO2 03/03/22 10:38 99.6 97 18 114/82 (93) 96 Room Air 99.6 I & O 03/02/22 03/02/22 03/03/22 15:00 23:00 07:00 Intake Total 1000 ml 240 ml Output Total 300 ml Balance 1000 ml -300 ml 240 ml Physical Exam General: Alert, Oriented X3 Heart: Regular rate, Normal S1, Normal S2 Lungs: Clear Abdomen: Soft, No tenderness, Other (scars from 3 prior surg, 2 prior ostomy placements) Extremities: Normal pulses, Other (left hand red, swollen, poor ROM wrist, ) Skin: No breakdown, Other (redness marked ot left wrist, splotchy, blanches) Labs Labs: Laboratory Tests Test 03/02/22 15:39 03/02/22 21:30 03/03/22 05:45 Lactic Acid Level 1.4 mmol/L (0.4-2.0) 0.6 mmol/L (0.4-2.0) Prothrombin Time 15.0 SEC (11.7-14.0) Prothromb Time International Ratio 1.2 (0.8-1.1) Activated Partial Thromboplast Time 47 SEC (24-38) White Blood Count 8.0 x10^3/uL (4.0-11.0) Red Blood Count 2.58 x10^6/uL (4.30-5.70) Hemoglobin 7.5 g/dL (13.0-17.5) Hematocrit 22.9 % (39.0-53.0) Mean Corpuscular Volume 89 fL (79-100) Mean Corpuscular Hemoglobin 29 pg (25-35) Mean Corpuscular Hemoglobin Concent 33 g/dL (31-37) Red Cell Distribution Width 18.7 % (11.5-14.5) Platelet Count 218 x10^3/uL (140-400) Neutrophils (%) (Auto) 79 % (31-73) Lymphocytes (%) (Auto) 10 % (24-48) Monocytes (%) (Auto) 8 % (0-9) Eosinophils (%) (Auto) 2 % (0-3) Basophils (%) (Auto) 1 % (0-3) Neutrophils # (Auto) 6.3 x10^3/uL (1.8-7.7) Lymphocytes # (Auto) 0.8 x10^3/uL (1.0-4.8) Monocytes # (Auto) 0.7 x10^3/uL (0.0-1.1) Eosinophils # (Auto) 0.2 x10^3/uL (0.0-0.7) Basophils # (Auto) 0.0 x10^3/uL (0.0-0.2) Erythrocyte Sedimentation Rate > 130 (0-15) Sodium Level 138 mmol/L (136-145) Potassium Level 3.5 mmol/L (3.5-5.1) Chloride Level 108 mmol/L (98-107) Carbon Dioxide Level 20 mmol/L (21-32) Anion Gap 10 (6-14) Blood Urea Nitrogen 13 mg/dL (8-26) Creatinine 1.4 mg/dL (0.7-1.3) Estimated GFR (Cockcroft-Gault) 52.1 BUN/Creatinine Ratio 9 (6-20) Glucose Level 101 mg/dL (70-99) Calcium Level 9.0 mg/dL (8.5-10.1) Total Bilirubin 0.5 mg/dL (0.2-1.0) Aspartate Amino Transf (AST/SGOT) 7 U/L (15-37) Alanine Aminotransferase (ALT/SGPT) 6 U/L (16-63) Alkaline Phosphatase 79 U/L (46-116) C-Reactive Protein, Quantitative 195.5 mg/L (0-3.3) Total Protein 6.1 g/dL (6.4-8.2) Albumin 1.9 g/dL (3.4-5.0) Albumin/Globulin Ratio 0.5 (1.0-1.7) Assessment and Plan Assessmemt and Plan Problems Medical Problems: (1) Cellulitis Status: Acute Comment Review of Relevant I have reviewed the following items negin (where applicable) has been applied. Medications: Current Medications Medications (Trade) Dose Ordered Sig/Galdino Route PRN Reason Start Time Stop Time Status Last Admin Dose Admin Fentanyl Citrate (Fentanyl 2ml Vial) 50 mcg 1X ONCE IVP 03/02/22 12:45 03/02/22 12:46 DC 03/02/22 12:29 Vancomycin HCl (Vanco Per Pharmacy) 1 each PRN DAILY PRN MC SEE COMMENTS 03/02/22 12:45 03/02/22 15:01 Vancomycin HCl 1.25 gm/Sodium Chloride 250 ml @ 166.667 mls/hr 1X ONCE IV 03/02/22 13:00 03/02/22 14:29 DC 03/02/22 13:12 Febuxostat (Uloric) 40 mg DAILY PO 03/02/22 15:00 03/03/22 08:52 Colchicine (Colcrys) 0.6 mg 1X ONCE PO 03/02/22 15:00 03/02/22 15:01 DC 03/02/22 15:39 Colchicine (Colcrys) 0.6 mg DAILY PO 03/03/22 09:00 03/03/22 08:52 Famotidine (Pepcid) 20 mg QHS PO 03/02/22 21:00 03/02/22 21:32 Metoprolol Succinate (Toprol Xl) 50 mg DAILY PO 03/03/22 09:00 03/03/22 08:53 Sodium Chloride 1,000 ml @ 125 mls/hr 1X ONCE IV 03/02/22 15:00 03/02/22 22:59 DC 03/02/22 15:40 Sodium Chloride 1,000 ml @ 1,000 mls/hr 1X ONCE IV 03/02/22 15:00 03/02/22 15:59 DC 03/02/22 15:40 Ferrous Sulfate (Iron Oral Solution) 300 mg DAILYBFRSUP PO 03/02/22 17:00 03/02/22 16:29 Acetaminophen (Tylenol) 650 mg PRN Q6HRS PRN PO MILD PAIN / TEMP > 100.3'F 03/02/22 16:15 03/02/22 16:30 Justifications for Admission Other Justification ZULEIKA LEW MD Mar 03, 2022 12:21
[2022-03-03] MEDS ORDERED: VANCOMYCIN 1 GM in IV NORMAL SALINE 250ML 250 ML IV SCH (13:00)
[2022-03-03 14:55] VITALS: BP 124/80
[2022-03-03] MEDS: VANCOMYCIN PER PHARMACY MC PRN (15:33)
[2022-03-03] MEDS: PIPERACILLIN/TAZOBACTAM 3.375 GM in IV NORMAL SALINE 50ML 50 ML IV SCH (17:50)
[2022-03-03] MEDS: FERROUS SULFATE ORAL 300 MG/5 ML SOLUTION. PO SCH (17:52)
[2022-03-03] MEDS: ENOXAPARIN 40 MG/0.4 ML SYRINGE. SQ SCH (17:53)
[2022-03-03] MEDS: DAPTOmycin (GENERIC) IVPB 390 MG in IV NORMAL SALINE 50ML 50 ML IV SCH (17:57)
[2022-03-03 19:35] VITALS: BP 121/76
[2022-03-03] MEDS: FAMOTIDINE 20 MG TABLET. PO SCH (21:25)
--- NOTE | 2022-03-03 21:53 | CONS ---
DATE OF CONSULTATION: 03/03/2022 REQUESTING PHYSICIAN: Dr. Sherman. REASON FOR CONSULTATION: Left wrist infection. HISTORY OF PRESENT ILLNESS: This is a 56-year-old gentleman who came in with left wrist swelling and pain. The patient denies any injury, denies any lifting, twisting. The patient has had gout in the past in the extremity and somewhat feels the same, he says. The patient denies any fever or chills, nausea, vomiting, diarrhea. The patient had a sed rate of more than 130, normal white count, creatinine 1.4. The patient underwent MRI of the hand, which showed significant inflammation, but no abscess and the patient has been put on vancomycin and colchicine. PAST MEDICAL HISTORY: Positive for gout, history of hypertension, peptic ulcer disease, renal insufficiency, diverticulitis. SOCIAL HISTORY: Negative for smoking, alcohol, illicit drug use. ALLERGIES: No known drug allergies. CURRENT MEDICATIONS: Reviewed. The patient is on IV vancomycin. ROS : as per HPI, rest of the systems reviewed and are neg. PHYSICAL EXAMINATION: GENERAL: Alert, oriented gentleman, not in distress. VITAL SIGNS: Stable. T-max is 101.3, pulse 90, respirations 18, blood pressure 124/80. HEENT: Both pupils are round and reacting. No conjunctival lesion, no lesion in the mouth. NECK: Supple, no JVP, no lymphadenopathy. LUNGS: Clear. HEART: S1, S2, regular. ABDOMEN: Soft, nontender, no organomegaly. EXTREMITIES: All the extremities are unremarkable except left hand and wrist is significantly swollen, red and tender and any movement is extremely painful. NEUROLOGIC: The patient is alert, awake, appropriate. No focal neurologic deficit. LABORATORY DATA: White count is normal. Sed rate is more than 130. BUN and creatinine is 13 and 1.4. CRP is 195. Lactic acid was up to 2.6. Actually, creatinine was 1.7 when he came in. Blood culture is negative. MRI as I mentioned. X-ray of the hand was unremarkable for any bony changes. IMPRESSION: 1. Left hand swelling, tenderness and redness, points towards most likely infection, doubt can do the similar picture. 2. Acute kidney injury. 3. Hypertension. 4. History of gastrointestinal bleed. RECOMMENDATIONS: Discontinue vancomycin and change to daptomycin and Zosyn, supportive care, anti-inflammatory and will continue to follow. Thank you very much, Dr. Sherman, for giving me opportunity to participate in this patient's care. NORM/NEYMAR DR: Jeffery TID: [id number] YAZMIN
[2022-03-03 23:24] VITALS: BP 117/76
[2022-03-04] MEDS: PIPERACILLIN/TAZOBACTAM 3.375 GM in IV NORMAL SALINE 50ML 50 ML IV SCH ×5 (00:04→23:58)
[2022-03-04 01:17] LABS: HEMOGLOBIN A1C 5.1 % (4.8-5.6)
[2022-03-04 02:47] VITALS: BP 106/68
[2022-03-04 07:30] VITALS: BP 119/81
[2022-03-04] MEDS: METOPROLOL SUCC 24HR ER 50 MG TAB.ER.24H. PO SCH (08:05)
[2022-03-04] MEDS: COLCHICINE 0.6 MG TABLET PO SCH (08:06)
[2022-03-04] MEDS: FOLIC/VIT B COMP W-C (RENAL) TABLET. PO SCH (08:06)
[2022-03-04] MEDS: FEBUXOSTAT 40 MG TABLET PO SCH (08:06)
[2022-03-04 09:38] LABS: CALCIUM 8.9 mg/dL (8.5-10.1); CREATININE 1.4 mg/dL (0.7-1.3); GFR 52.1; POTASSIUM 3.3 mmol/L (3.5-5.1)
[2022-03-04 11:48] VITALS: BP 110/76
[2022-03-04 11:57] LABS: BASO # 0.1 x10^3/uL (0.0-0.2); BASO % 1 % (0-3); EOS # 0.2 x10^3/uL (0.0-0.7); EOS % 3 % (0-3); HEMATOCRIT 21.6 % (39.0-53.0); HEMOGLOBIN 7.3 g/dL (13.0-17.5); LYMPH % 14 % (24-48); MEAN CORPUSCULAR HEMOGLOBIN 30 pg (25-35); MEAN CORPUSCULAR HGB CONC 34 g/dL (31-37); MEAN CORPUSCULAR VOLUME 88 fL (79-100); MONO # 0.5 x10^3/uL (0.0-1.1); MONO % 8 % (0-9); NEUT # 5.3 x10^3/uL (1.8-7.7); NEUT % 74 % (31-73); PLATELET COUNT 255 x10^3/uL (140-400); RED BLOOD COUNT 2.47 x10^6/uL (4.30-5.70); RED CELL DISTRIBUTION WIDTH 18.3 % (11.5-14.5); WHITE BLOOD COUNT 7.1 x10^3/uL (4.0-11.0)
[2022-03-04 15:30] VITALS: BP 116/80
[2022-03-04] MEDS: ENOXAPARIN 40 MG/0.4 ML SYRINGE. SQ SCH (16:23)
[2022-03-04] MEDS: FERROUS SULFATE ORAL 300 MG/5 ML SOLUTION. PO SCH (16:23)
[2022-03-04] MEDS: DAPTOmycin (GENERIC) IVPB 390 MG in IV NORMAL SALINE 50ML 50 ML IV SCH (16:23)
--- NOTE | 2022-03-04 17:05 | PDOC ---
Infectious Disease Note Subjective Subjective pt is feeling better, less swelling and redness, pain is about same ROS ROS no n/v/d/ Vital Sign Vital Signs Vital Signs Date Time Temp Pulse Resp B/P (MAP) Pulse Ox O2 Delivery O2 Flow Rate FiO2 03/04/22 15:30 98.6 82 16 116/80 (92) 97 Room Air 98.6 Physical Exam PHYSICAL EXAM GENERAL: Alert, oriented gentleman, not in distress. VITAL SIGNS: Stable. HEENT: Both pupils are round and reacting. No conjunctival lesion, no lesion in the mouth. NECK: Supple, no JVP, no lymphadenopathy. LUNGS: Clear. HEART: S1, S2, regular. ABDOMEN: Soft, nontender, no organomegaly. EXTREMITIES: All the extremities are unremarkable except left hand and wrist is significantly swollen, red and tender and any movement is extremely painful. NEUROLOGIC: The patient is alert, awake, appropriate. No focal neurologic deficit. Labs Lab Laboratory Tests Test 03/04/22 05:00 03/04/22 08:20 White Blood Count 7.1 x10^3/uL (4.0-11.0) Red Blood Count 2.47 x10^6/uL (4.30-5.70) Hemoglobin 7.3 g/dL (13.0-17.5) Hematocrit 21.6 % (39.0-53.0) Mean Corpuscular Volume 88 fL (79-100) Mean Corpuscular Hemoglobin 30 pg (25-35) Mean Corpuscular Hemoglobin Concent 34 g/dL (31-37) Red Cell Distribution Width 18.3 % (11.5-14.5) Platelet Count 255 x10^3/uL (140-400) Neutrophils (%) (Auto) 74 % (31-73) Lymphocytes (%) (Auto) 14 % (24-48) Monocytes (%) (Auto) 8 % (0-9) Eosinophils (%) (Auto) 3 % (0-3) Basophils (%) (Auto) 1 % (0-3) Neutrophils # (Auto) 5.3 x10^3/uL (1.8-7.7) Lymphocytes # (Auto) 1.0 x10^3/uL (1.0-4.8) Monocytes # (Auto) 0.5 x10^3/uL (0.0-1.1) Eosinophils # (Auto) 0.2 x10^3/uL (0.0-0.7) Basophils # (Auto) 0.1 x10^3/uL (0.0-0.2) Erythrocyte Sedimentation Rate > 130 (0-15) Sodium Level 141 mmol/L (136-145) Potassium Level 3.3 mmol/L (3.5-5.1) Chloride Level 108 mmol/L (98-107) Carbon Dioxide Level 21 mmol/L (21-32) Anion Gap 12 (6-14) Blood Urea Nitrogen 11 mg/dL (8-26) Creatinine 1.4 mg/dL (0.7-1.3) Estimated GFR (Cockcroft-Gault) 52.1 Glucose Level 87 mg/dL (70-99) Calcium Level 8.9 mg/dL (8.5-10.1) Creatine Kinase 18 U/L (39-308) C-Reactive Protein, Quantitative 169.9 mg/L (0-3.3) Micro Microbiology 03/02/22 Blood Culture - Preliminary, Resulted NO GROWTH AFTER 2 DAYS Objective Assessment IMPRESSION: 1. Left hand swelling, tenderness and redness, points towards most likely infection, doubt can do the similar picture. 2. Acute kidney injury. 3. Hypertension. 4. History of gastrointestinal bleed. Plan Plan of Care cont antibiotics cont EUN Maguire MD Mar 04, 2022 17:05
[2022-03-04 19:00] VITALS: BP 117/78
[2022-03-04 23:00] VITALS: BP 109/78
[2022-03-04] MEDS: FAMOTIDINE 20 MG TABLET. PO SCH (23:01)
[2022-03-04] MEDS: LACTOBACILLUS RHAMNOSUS GG 1 CAPSULE. PO SCH (23:02)
[2022-03-05 03:00] VITALS: BP 111/82
[2022-03-05] MEDS: PIPERACILLIN/TAZOBACTAM 3.375 GM in IV NORMAL SALINE 50ML 50 ML IV SCH ×3 (06:55→17:05)
[2022-03-05 07:00] VITALS: BP 119/81
[2022-03-05] MEDS: COLCHICINE 0.6 MG TABLET PO SCH (08:28)
[2022-03-05] MEDS: FOLIC/VIT B COMP W-C (RENAL) TABLET. PO SCH (08:28)
[2022-03-05] MEDS: FEBUXOSTAT 40 MG TABLET PO SCH (08:28)
[2022-03-05] MEDS: LACTOBACILLUS RHAMNOSUS GG 1 CAPSULE. PO SCH ×2 (08:29→20:56)
[2022-03-05] MEDS: METOPROLOL SUCC 24HR ER 50 MG TAB.ER.24H. PO SCH (08:29)
[2022-03-05 11:00] VITALS: BP 109/77
[2022-03-05] MEDS ORDERED: oxyCODONE/APAP 5/325 1 TAB TABLET PO PRN (11:30)
[2022-03-05] MEDS ORDERED: MINERAL OIL/PETROLATUM,WHITE OPHTH OINT 3.5GM TUBE. OU PRN (11:30)
[2022-03-05 15:00] VITALS: BP 107/76
--- NOTE | 2022-03-05 16:11 | PDOC ---
Infectious Disease Note Subjective: Subjective pt is feeling better, less swelling and redness, pain has been stable Vital Signs: Vital Signs Vital Signs Date Time Temp Pulse Resp B/P (MAP) Pulse Ox O2 Delivery O2 Flow Rate FiO2 03/05/22 15:00 98.8 67 18 107/76 (86) 97 Room Air 98.8 Physical Exam: PHYSICAL EXAM GENERAL: Alert, oriented gentleman, not in distress. VITAL SIGNS: Stable. HEENT: Both pupils are round and reacting. No conjunctival lesion, no lesion in the mouth. NECK: Supple, no JVP, no lymphadenopathy. LUNGS: Clear. HEART: S1, S2, regular. ABDOMEN: Soft, nontender, no organomegaly. EXTREMITIES: All the extremities are unremarkable except left hand and wrist is significantly swollen, red and tender and any movement is extremely painful. NEUROLOGIC: The patient is alert, awake, appropriate. No focal neurologic deficit. Medications: Inpatient Meds: Medications reviewed. Labs: Lab Laboratory Tests Test 03/05/22 07:05 Erythrocyte Sedimentation Rate > 130 (0-15) C-Reactive Protein, Quantitative 112.4 mg/L (0-3.3) Objective: Assessment: 1. Left hand swelling, tenderness and redness, points towards most likely infection, gout can do the similar picture. 2. Acute kidney injury. 3. Hypertension. 4. History of gastrointestinal bleed. Plan: Plan of Care cont antibiotics cont KIMBERLY Maguire MD Mar 05, 2022 16:11
[2022-03-05] MEDS: DAPTOmycin (GENERIC) IVPB 390 MG in IV NORMAL SALINE 50ML 50 ML IV SCH (16:26)
[2022-03-05] MEDS: ENOXAPARIN 40 MG/0.4 ML SYRINGE. SQ SCH (16:30)
[2022-03-05] MEDS: FERROUS SULFATE ORAL 300 MG/5 ML SOLUTION. PO SCH (17:02)
[2022-03-05 19:00] VITALS: BP 113/76
[2022-03-05] MEDS: FAMOTIDINE 20 MG TABLET. PO SCH (20:56)
[2022-03-05 23:00] VITALS: BP 110/76
--- NOTE | 2022-03-05 23:12 | PDOC ---
[facility] PROGRESS NOTE Date of Service DOS: DATE: 03/05/22 TIME: 23:11 Chief Complaint Chief Complaint left hand and wrist celluliit,s IV vanco Hx GOUT< uric acid high, consult ortho, prob may have startd with gout, Give cochicine and uloric, Htn, metoprolol, would wean off, not best choice for monotherapy,. 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 Continue antibiotics. Requested a one-time dose of oxycodone. Will order. Likely discharge in the next day or 2. 03/04 Patient evaluated examined at bedside. Pain improving. Continue IV antibiotics 03/03 Seen at bedside, pain improving but still definitely present. As needed pain control. ID consult. Continue gout treatment. Vitals/I&O Vitals/I&O: Vital Signs Date Time Temp Pulse Resp B/P (MAP) Pulse Ox O2 Delivery O2 Flow Rate FiO2 03/05/22 19:00 98.4 73 14 113/76 (88) 97 Room Air 98.4 I & O 03/04/22 03/04/22 03/05/22 15:00 23:00 07:00 Intake Total 350 ml 450 ml Output Total 200 ml 200 ml 500 ml Balance 150 ml 250 ml -500 ml Physical Exam Physical Exam: GENERAL: Alert, oriented gentleman, not in distress. VITAL SIGNS: Stable. HEENT: Both pupils are round and reacting. No conjunctival lesion, no lesion in the mouth. NECK: Supple, no JVP, no lymphadenopathy. LUNGS: Clear. HEART: S1, S2, regular. ABDOMEN: Soft, nontender, no organomegaly. EXTREMITIES: All the extremities are unremarkable except left hand and wrist is significantly swollen, red and tender and any movement is extremely painful. NEUROLOGIC: The patient is alert, awake, appropriate. No focal neurologic deficit. General: Alert, Oriented X3 Heart: Regular rate, Normal S1, Normal S2 Lungs: Clear Abdomen: Soft, No tenderness, Other (scars from 3 prior surg, 2 prior ostomy placements) Extremities: Normal pulses, Other (left hand red, swollen, poor ROM wrist, ) Skin: No breakdown, Other (redness marked ot left wrist, splotchy, blanches) Labs Labs: Laboratory Tests Test 03/05/22 07:05 Erythrocyte Sedimentation Rate > 130 (0-15) C-Reactive Protein, Quantitative 112.4 mg/L (0-3.3) Assessment and Plan Assessmemt and Plan Problems Medical Problems: (1) Cellulitis Status: Acute Comment Review of Relevant I have reviewed the following items negin (where applicable) has been applied. Medications: Current Medications Medications (Trade) Dose Ordered Sig/Galdino Route PRN Reason Start Time Stop Time Status Last Admin Dose Admin Oxycodone/ Acetaminophen (Percocet 5/325) 1 tab PRN Q4HRS PRN PO PAIN 03/05/22 11:30 03/05/22 11:36 Justifications for Admission Other Justification ZULEIKA LEW MD Mar 05, 2022 23:12
[2022-03-06] MEDS: PIPERACILLIN/TAZOBACTAM 3.375 GM in IV NORMAL SALINE 50ML 50 ML IV SCH ×2 (00:01→06:16)
[2022-03-06 03:00] VITALS: BP 131/72
[2022-03-06 07:00] VITALS: BP 122/79
[2022-03-06] MEDS: FERROUS SULFATE ORAL 300 MG/5 ML SOLUTION. PO SCH (09:31)
[2022-03-06] MEDS: FEBUXOSTAT 40 MG TABLET PO SCH (09:31)
[2022-03-06] MEDS: LACTOBACILLUS RHAMNOSUS GG 1 CAPSULE. PO SCH (09:31)
[2022-03-06] MEDS: COLCHICINE 0.6 MG TABLET PO SCH (09:32)
[2022-03-06] MEDS: METOPROLOL SUCC 24HR ER 50 MG TAB.ER.24H. PO SCH (09:32)
[2022-03-06] MEDS: FOLIC/VIT B COMP W-C (RENAL) TABLET. PO SCH (09:32)
--- NOTE | 2022-03-06 10:43 | PDOC ---
[facility] PROGRESS NOTE Date of Service DOS: DATE: 03/06/22 TIME: 10:31 Chief Complaint Chief Complaint left hand and wrist celluliit,s IV vanco Hx GOUT< uric acid high, consult ortho, prob may have startd with gout, Give cochicine and uloric, Htn, metoprolol, would wean off, not best choice for monotherapy,. 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 He does historic diagnosis of gout and was on allopurinol but stopped it because he had not had a flareup. He has never heard of rheumatoid arthritis before elevated rheumatoid factor greater than 15. CCP pending. Will initiate steroids today if able to ambulate may be able to go home on p.o. antibiotics will discuss with ID and Ortho. 03/05: Evaluate examined at bedside. Continue antibiotics. Requested a one-time dose of oxycodone. Will order. Likely discharge in the next day or 2. 03/04: Patient evaluated examined at bedside. Pain improving. Continue IV antibiotics 03/03: Seen at bedside, pain improving but still definitely present. As needed pain control. ID consult. Continue gout treatment. Vitals/I&O Vitals/I&O: Vital Signs Date Time Temp Pulse Resp B/P (MAP) Pulse Ox O2 Delivery O2 Flow Rate FiO2 03/06/22 09:32 61 122/79 03/06/22 07:00 98.5 18 99 Room Air 98.5 I & O 03/05/22 03/05/22 03/06/22 15:00 23:00 07:00 Intake Total 120 ml 120 ml 100 ml Output Total 200 ml Balance 120 ml 120 ml -100 ml Physical Exam Physical Exam: GENERAL: Alert, oriented gentleman, not in distress. VITAL SIGNS: Stable. HEENT: Both pupils are round and reacting. No conjunctival lesion, no lesion in the mouth. NECK: Supple, no JVP, no lymphadenopathy. LUNGS: Clear. HEART: S1, S2, regular. ABDOMEN: Soft, nontender, no organomegaly. EXTREMITIES: All the extremities are unremarkable except left hand and wrist is significantly swollen, red and tender and any movement is extremely painful. NEUROLOGIC: The patient is alert, awake, appropriate. No focal neurologic deficit. General: Alert, Oriented X3 Heart: Regular rate, Normal S1, Normal S2 Lungs: Clear Abdomen: Soft, No tenderness, Other (scars from 3 prior surg, 2 prior ostomy placements) Extremities: Normal pulses, Other (left hand red, swollen, poor ROM wrist, ) Skin: No breakdown, Other (redness marked ot left wrist, splotchy, blanches) Labs Labs: Laboratory Tests Test 03/06/22 05:35 Erythrocyte Sedimentation Rate > 130 (0-15) C-Reactive Protein, Quantitative 90.6 mg/L (0-3.3) Assessment and Plan Assessmemt and Plan Problems Medical Problems: (1) Cellulitis Status: Acute Comment Review of Relevant I have reviewed the following items negin (where applicable) has been applied. Medications: Current Medications Medications (Trade) Dose Ordered Sig/Galdino Route PRN Reason Start Time Stop Time Status Last Admin Dose Admin Oxycodone/ Acetaminophen (Percocet 5/325) 1 tab PRN Q4HRS PRN PO PAIN 03/05/22 11:30 03/05/22 11:36 Justifications for Admission Other Justification ZULEIKA WELCH MD Mar 06, 2022 10:43
[2022-03-06] MEDS ORDERED: predniSONE 20 MG TABLET PO SCH (10:45)
[2022-03-06] MEDS ORDERED: CEPH500T PO (10:57)
[2022-03-06] MEDS ORDERED: DOXY-181 PO (10:57)
[2022-03-06] MEDS ORDERED: PRED20TA PO (10:57)
[2022-03-06 11:00] VITALS: BP 94/55
--- NOTE | 2022-03-06 11:04 | PDOC3 ---
Discharge Summary Visit Information Date of Admission: Mar 02, 2022 Date of Discharge: Mar 06, 2022 Admitting Diagnosis: Bilateral hand cellulitis, gout flare Final Diagnosis Problems Medical Problems: (1) Cellulitis Status: Acute Brief Hospital Course Allergies Allergies Coded Allergies Type Severity Reaction Last Updated Verified No Known Drug Allergies 05/25/20 No Vital Signs Vital Signs Date Time Temp Pulse Resp B/P (MAP) Pulse Ox O2 Delivery O2 Flow Rate FiO2 03/06/22 09:32 61 122/79 03/06/22 08:00 Room Air 03/06/22 07:00 98.5 18 99 98.5 Lab Results Laboratory Tests Test 03/05/22 07:05 03/06/22 05:35 Erythrocyte Sedimentation Rate > 130 (0-15) > 130 (0-15) C-Reactive Protein, Quantitative 112.4 mg/L (0-3.3) 90.6 mg/L (0-3.3) Iron Level 18 ug/dL (65-175) Total Iron Binding Capacity 130 ug/dL (250-450) Iron Saturation 14 % (15-34) Laboratory Tests Test 03/06/22 05:35 Erythrocyte Sedimentation Rate > 130 (0-15) Iron Level 18 ug/dL (65-175) Total Iron Binding Capacity 130 ug/dL (250-450) Iron Saturation 14 % (15-34) C-Reactive Protein, Quantitative 90.6 mg/L (0-3.3) Brief Hospital Course Mr. Vazquez is a 56-year-old male with past medical history gout hypertension peptic ulcer disease , CKD who was previously on allopurinol who comes to the ED with pain and swelling in bilateral hands with redness starting on 02/27/2022. Was complaining of hyperesthesia. Had MRI of his left hand showed significant inflammation no discrete abscess. Was started on vancomycin and Zosyn as well as colchicine. Given his creatinine 1.4, discontinued colchicine. Sed rate. 930 CRP 195 lactic acid 2.6, uric acid 11 rheumatoid factor was a little bit elevated CCP is pending. Also with hemoglobin of 7.2 decreased TIBC and iron level of 16. After all several days of IV antibiotics he felt improved. Was transitioned steroids and p.o. antibiotics. Consults: Orthopedic surgery and infectious diseases 03/06: Still swollen painful bilateral hands wrists elbows and ankles. He does historic diagnosis of gout and was on allopurinol but stopped it because he had not had a flareup. He has never heard of rheumatoid arthritis before elevated rheumatoid factor greater than 15. CCP pending. Will initiate steroids today if able to ambulate may be able to go home on p.o. antibiotics will discuss with ID and Ortho. Problem list: left hand and wrist cellulitis IV vanco--> dapto --> doxy + keflex GOUT - uric acid high, consult ortho, prob may have startd with gout, Give cochicine and uloric, will transition to steroids PO and restart allopurinol in 2 weeks Htn, metoprolol - should consider cozaar with hx gout leg weakness, PT and OT - improved CKD 3 - stable. 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 Discharge Information Condition at Discharge: Improved Follow Up: Weeks (1) Disposition/Orders: D/C to Home Scheduled Aspirin (Aspir-Low) 81 Mg Tablet.dr, 1 TAB PO DAILY, #30 Ref 3 (Reported) Entered as Reported by: MAYELA WALDEN RN on 08/04/18 1245 Cephalexin (Cephalexin) 500 Mg Tablet, 1 TAB PO BID for Cellulitis for 7 Days, #14 Prescribed by: ZULEIKA WELCH MD on 03/06/22 1057 Doxycycline Monohydrate (Doxycycline Monohydrate) 100 Mg Capsule, 1 CAP PO BID for Cellulitis for 7 Days, #14 Prescribed by: ZULEIKA WELCH MD on 03/06/22 1057 Metoprolol Succinate (Metoprolol Succinate) 50 Mg Tab.er.24h, 100 MG PO DAILY, (Reported) Entered as Reported by: MAYELA WALDEN RN on 08/04/18 1114 Last Action: Continued on 03/02/22 1448 by CHARLES TIWARI Prednisone (Prednisone) 20 Mg Tablet, 20 MG PO DAILY for Gout/Rheumatoid arthritis for 10 Days, #15 Prescribed by: ZULEIKA WELCH MD on 03/06/22 1057 Discontinued Medications Indomethacin (Indomethacin) 50 Mg Capsule, 1 CAP PO TID PRN for PAIN, #30 Ref 1 (Reported) Entered as Reported by: MAYELA WALDEN RN on 08/04/18 1245 Justicifation of Admission Dx: Justifications for Admission: Justification of Admission Dx: Yes ZULEIKA WELCH MD Mar 06, 2022 11:04
--- NOTE | 2022-03-06 12:30 | NUR ---
awaiting ride. reviewed written discharge instructions regarding following up with Dr. Paez and explained about his new medications. When he gets the antibiotics he is to take both doses and only 1 dose of the prednisone. He had 1 dose here in the hospital. verbalized understanding saline lock removed.
== END 2022-03-06 13:35 | disposition home or self-care (01) | DRG 871 ==
LOC: ER 10:02 → 4 NORTH 12:45
PROVIDERS: ADMIT Internal Medicine; ATTEND Internal Medicine
DX: A41.9 Sepsis, unspecified organism (principal); E43 Unspecified severe protein-calorie malnutrition; L03.114 Cellulitis of left upper limb; N17.9 Acute kidney failure, unspecified; N18.30 Chronic kidney disease, stage 3 unspecified; F10.10 Alcohol abuse, uncomplicated; I12.9 Hypertensive chronic kidney disease with stage 1 through stage 4 chronic kidney disease, or unspecified chronic kidney disease; R00.0 Tachycardia, unspecified; M10.9 Gout, unspecified; Z82.49 Family history of ischemic heart disease and other diseases of the circulatory system; Z87.11 Personal history of peptic ulcer disease; Z90.49 Acquired absence of other specified parts of digestive tract; Z93.3 Colostomy status; Z68.22 Body mass index [BMI] 22.0-22.9, adult
CPT/HCPCS: 36415; 71045; 73130; 73218; 80048; 80053; 82550; 83036; 83540; 83550; 83605; 84443; 84484; 84550; 85025; 85610; 85651; 85730; 86140; 86200; 86431; 87040; 93005; 96361; 96365; 96375; J0878; J1650; J2543; J3010; J3370; J7030; J7050; J7512; 97110-GP; 97116-GP; 97530-GO; 99285-25; G0378

== ENCOUNTER 2022-03-17 22:06 | Inpatient (IN) | payer OTHER ==
[~2022-03-17] VITALS: Ht 152.4 cm; Wt 63.0 kg
[~2022-03-17 22:06] MED LIST changes: +CEPH500T PO; +DOXY-181 PO; +ONDANSETRON PF 4 MG/2 ML VIAL. IVP ONE; +PRED20TA PO
[2022-03-17 22:43] LABS: BASO # 0.1 x10^3/uL (0.0-0.2); BASO % 0 % (0-3); EOS # 0.1 x10^3/uL (0.0-0.7); EOS % 1 % (0-3); HEMATOCRIT 18.9 % (39.0-53.0); LYMPH # 2.2 x10^3/uL (1.0-4.8); LYMPH % 14 % (24-48); MEAN CORPUSCULAR HEMOGLOBIN 30 pg (25-35); MEAN CORPUSCULAR HGB CONC 33 g/dL (31-37); MEAN CORPUSCULAR VOLUME 89 fL (79-100); MONO % 7 % (0-9); NEUT # 12.3 x10^3/uL (1.8-7.7); NEUT % 78 % (31-73); PLATELET COUNT 377 x10^3/uL (140-400); RED BLOOD COUNT 2.12 x10^6/uL (4.30-5.70); RED CELL DISTRIBUTION WIDTH 20.1 % (11.5-14.5); WHITE BLOOD COUNT 15.8 x10^3/uL (4.0-11.0)
[2022-03-17 22:45] LABS: HEMOGLOBIN 6.3 g/dL (13.0-17.5)
[2022-03-17 22:49] LABS: PROTHROMBIN TIME PATIENT 16.4 SEC (11.7-14.0)
[2022-03-17 22:50] LABS: CALCIUM 8.3 mg/dL (8.5-10.1); CREATININE 1.8 mg/dL (0.7-1.3); GFR 38.9; POTASSIUM 4.4 mmol/L (3.5-5.1)
[2022-03-17 22:55] LABS: ALBUMIN 1.9 g/dL (3.4-5.0); ALBUMIN/GLOBULIN RATIO 0.5 (1.0-1.7); TOTAL BILIRUBIN 0.4 mg/dL (0.2-1.0); TOTAL PROTEIN 5.6 g/dL (6.4-8.2)
[2022-03-17] MEDS ORDERED: IV NORMAL SALINE 1000ML BAG 1,000 ML IV ONE (23:00)
[2022-03-17 23:33] LABS: ANISOCYTOSIS MOD; PLT ESTIMATE ADEQUATE (ADEQUATE)
[2022-03-18] VITALS (33 sets, daily range): BP systolic 80–129; BP diastolic 48–82
--- NOTE | 2022-03-18 00:03 | RAD ---
AP chest x-ray HISTORY: Syncope. COMPARISON: Chest x-ray March 02, 2022 FINDINGS: There is an old deformity of the right humeral head and neck which is stable to prior x-ray s. Heart size normal. Mediastinal silhouette is normal. Small calcified granuloma left lung. No pneum othorax, pulmonary opacities or pleural effusions. Old healed left clavicle deformity. Old healed rib fractures. IMPRESSION: No acute cardiopulmonary process. Electronically signed by: Derrick Novoa MD (03/18/2022 12:01 AM) [facility]
[2022-03-18] MEDS ORDERED: ONDANSETRON PF 4 MG/2 ML VIAL. ONE (00:04)
[2022-03-18] MEDS ORDERED: IV NORMAL SALINE 1000ML BAG 1,000 ML IV ONE ×3 (00:30→01:00)
[2022-03-18] MEDS ORDERED: FAMOTIDINE 20 MG/2 ML VIAL IVP ONE (00:30)
--- NOTE | 2022-03-18 04:11 | EKG ---
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
--- NOTE | 2022-03-18 04:15 | EKG ---
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
--- NOTE | 2022-03-18 04:16 | EKG ---
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
[2022-03-18 07:50] LABS: HEMATOCRIT 22.4 % (39.0-53.0); HEMOGLOBIN 7.6 g/dL (13.0-17.5)
[2022-03-18] MEDS ORDERED: PANTOPRAZOLE IV PUSH 40 MG VIAL. IVP SCH (11:00)
[2022-03-18] MEDS: IV NORMAL SALINE 1000ML BAG 1,000 ML IV SCH (11:00)
--- NOTE | 2022-03-18 11:17 | PDOC ---
GENERAL General: History and physical [id number] VITAL SIGNS Vital Signs/I&O: Vital Signs Date Time Temp Pulse Resp B/P (MAP) Pulse Ox O2 Delivery O2 Flow Rate FiO2 03/18/22 07:00 98.9 88 19 98/56 98.9 03/18/22 06:00 98 Room Air I & O 03/17/22 03/17/22 03/18/22 15:00 23:00 07:00 Intake Total 827 ml Output Total 400 ml Balance 427 ml ALLERGIES Allergies: Allergies Coded Allergies Type Severity Reaction Last Updated Verified No Known Drug Allergies 03/17/22 No MEDS Medications: Current Medications Medications (Trade) Dose Ordered Sig/Galdino Route PRN Reason Start Time Stop Time Status Last Admin Dose Admin Sodium Chloride 1,000 ml @ 30 mls/hr 1X ONCE IV 03/17/22 23:00 03/17/22 23:56 DC 03/17/22 22:33 Sodium Chloride 1,000 ml @ 1,000 mls/hr 1X ONCE IV 03/18/22 00:30 03/18/22 01:29 DC 03/17/22 22:00 Sodium Chloride 1,000 ml @ 1,000 mls/hr 1X ONCE IV 03/18/22 00:30 03/18/22 01:29 DC 03/18/22 00:02 Famotidine (Pepcid Vial) 20 mg 1X ONCE IVP 03/18/22 00:30 03/18/22 00:31 DC 03/18/22 00:09 Sodium Chloride 1,000 ml @ 150 mls/hr 1X ONCE IV 03/18/22 01:00 03/18/22 07:39 DC 03/18/22 01:11 LAB Lab: Laboratory Tests Test 03/17/22 22:25 03/18/22 07:15 White Blood Count 15.8 x10^3/uL (4.0-11.0) H Red Blood Count 2.12 x10^6/uL (4.30-5.70) L Hemoglobin 6.3 g/dL (13.0-17.5) *L 7.6 g/dL (13.0-17.5) L Hematocrit 18.9 % (39.0-53.0) L 22.4 % (39.0-53.0) L Mean Corpuscular Volume 89 fL (79-100) Mean Corpuscular Hemoglobin 30 pg (25-35) Mean Corpuscular Hemoglobin Concent 33 g/dL (31-37) 34 g/dL (31-37) Red Cell Distribution Width 20.1 % (11.5-14.5) H Platelet Count 377 x10^3/uL (140-400) Neutrophils (%) (Auto) 78 % (31-73) H Lymphocytes (%) (Auto) 14 % (24-48) L Monocytes (%) (Auto) 7 % (0-9) Eosinophils (%) (Auto) 1 % (0-3) Basophils (%) (Auto) 0 % (0-3) Neutrophils # (Auto) 12.3 x10^3/uL (1.8-7.7) H Lymphocytes # (Auto) 2.2 x10^3/uL (1.0-4.8) Monocytes # (Auto) 1.0 x10^3/uL (0.0-1.1) Eosinophils # (Auto) 0.1 x10^3/uL (0.0-0.7) Basophils # (Auto) 0.1 x10^3/uL (0.0-0.2) Platelet Estimate Adequate (ADEQUATE) Anisocytosis Mod Prothrombin Time 16.4 SEC (11.7-14.0) H Prothrombin Time INR 1.4 (0.8-1.1) H Activated Partial Thromboplast Time 35 SEC (24-38) Sodium Level 139 mmol/L (136-145) Potassium Level 4.4 mmol/L (3.5-5.1) Chloride Level 106 mmol/L (98-107) Carbon Dioxide Level 15 mmol/L (21-32) L Anion Gap 18 (6-14) H Blood Urea Nitrogen 55 mg/dL (8-26) H Creatinine 1.8 mg/dL (0.7-1.3) H Estimated GFR (Cockcroft-Gault) 38.9 BUN/Creatinine Ratio 31 (6-20) H Glucose Level 159 mg/dL (70-99) H Calcium Level 8.3 mg/dL (8.5-10.1) L Total Bilirubin 0.4 mg/dL (0.2-1.0) Aspartate Amino Transferase (AST) 15 U/L (15-37) Alanine Aminotransferase (ALT) 23 U/L (16-63) Alkaline Phosphatase 65 U/L (46-116) Total Protein 5.6 g/dL (6.4-8.2) L Albumin 1.9 g/dL (3.4-5.0) L Albumin/Globulin Ratio 0.5 (1.0-1.7) L Laboratory Tests 03/17/22 22:25 03/18/22 07:15 Laboratory Tests 03/17/22 22:25 Justifications for Admission Other Justification FACUNDO WEST MD Mar 18, 2022 11:17
--- NOTE | 2022-03-18 12:43 | PDOC2 ---
GI CONSULT Date of Service: DATE: 03/18/22 TIME: 12:26 Reason For Consult: Anemia/GIB? HPI: HPI: 56 y/o male presented to ER after weakness and possible syncopal episode at home. Noted to be anemic and we were asked to see. Mentions dark stools, but "not like when I was admitted to [facility]". Did use PeptoBismol on Sunday for some non-specific dyspepsia. No N, V, hematemesis nor hematochezia. [facility] with melena. Initial EGD with DU/clot; clot could not be washed off; next day, had second EGD with the DU w/o clot but with SRH. Attempts to inject with epi difficult (indicates chronic ulcer with fibrotic base). Lesion BICAP'd and clipped. Says was not sent home on PPI nor iron. Here couple of weeks ago and anemic then. Had NO varices on EGD's. Denies heartburn or dysphagia. Post-cholecystectomy. Has had imaging c/w hepatic steatosis, but no cirrhosis. Prior alcoholic pancreatitis. Non-smoker. Has been alcohol abuser. No diarrhea or constipation. Says "normal" colonoscopy at [facility] 3-4 years ago. Last seen by us here in 2018 when admitted with perforated diverticulitis; had drain, but no resection. 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 FH: Family History: No pertinent hx Social History: Smoke: No ALCOHOL: none (Heavy in the past.) Drugs: None ROS: GEN: Denies fevers, chills, sweats HEENT: Denies blurred vision, sore throat CV: Denies chest pain RESP: Denies shortness of air, cough GI: Per HPI : Denies hematuria, dysuria ENDO: Denies weight changes NEURO: Denies confusion, dizziness MSK: Denies weakness, joint pain/swelling SKIN: Denies jaundice, pruritus Vitals: Vitals: Vital Signs Date Time Temp Pulse Resp B/P (MAP) Pulse Ox O2 Delivery O2 Flow Rate FiO2 03/18/22 07:00 98.9 88 19 98/56 98.9 03/18/22 06:00 98 Room Air Labs: Labs: Laboratory Tests Test 03/17/22 22:25 03/18/22 07:15 White Blood Count 15.8 x10^3/uL (4.0-11.0) Red Blood Count 2.12 x10^6/uL (4.30-5.70) Hemoglobin 6.3 g/dL (13.0-17.5) 7.6 g/dL (13.0-17.5) Hematocrit 18.9 % (39.0-53.0) 22.4 % (39.0-53.0) Mean Corpuscular Volume 89 fL (79-100) Mean Corpuscular Hemoglobin 30 pg (25-35) Mean Corpuscular Hemoglobin Concent 33 g/dL (31-37) 34 g/dL (31-37) Red Cell Distribution Width 20.1 % (11.5-14.5) Platelet Count 377 x10^3/uL (140-400) Neutrophils (%) (Auto) 78 % (31-73) Lymphocytes (%) (Auto) 14 % (24-48) Monocytes (%) (Auto) 7 % (0-9) Eosinophils (%) (Auto) 1 % (0-3) Basophils (%) (Auto) 0 % (0-3) Neutrophils # (Auto) 12.3 x10^3/uL (1.8-7.7) Lymphocytes # (Auto) 2.2 x10^3/uL (1.0-4.8) Monocytes # (Auto) 1.0 x10^3/uL (0.0-1.1) Eosinophils # (Auto) 0.1 x10^3/uL (0.0-0.7) Basophils # (Auto) 0.1 x10^3/uL (0.0-0.2) Platelet Estimate Adequate (ADEQUATE) Anisocytosis Mod Prothrombin Time 16.4 SEC (11.7-14.0) Prothromb Time International Ratio 1.4 (0.8-1.1) Activated Partial Thromboplast Time 35 SEC (24-38) Sodium Level 139 mmol/L (136-145) Potassium Level 4.4 mmol/L (3.5-5.1) Chloride Level 106 mmol/L (98-107) Carbon Dioxide Level 15 mmol/L (21-32) Anion Gap 18 (6-14) Blood Urea Nitrogen 55 mg/dL (8-26) Creatinine 1.8 mg/dL (0.7-1.3) Estimated GFR (Cockcroft-Gault) 38.9 BUN/Creatinine Ratio 31 (6-20) Glucose Level 159 mg/dL (70-99) Calcium Level 8.3 mg/dL (8.5-10.1) Total Bilirubin 0.4 mg/dL (0.2-1.0) Aspartate Amino Transf (AST/SGOT) 15 U/L (15-37) Alanine Aminotransferase (ALT/SGPT) 23 U/L (16-63) Alkaline Phosphatase 65 U/L (46-116) Total Protein 5.6 g/dL (6.4-8.2) Albumin 1.9 g/dL (3.4-5.0) Albumin/Globulin Ratio 0.5 (1.0-1.7) Allergies: Coded Allergies: No Known Drug Allergies (Unverified , 03/17/22) Medications: Current Medications Medications (Trade) Dose Ordered Sig/Galdino Route PRN Reason Start Time Stop Time Status Last Admin Dose Admin Sodium Chloride 1,000 ml @ 30 mls/hr 1X ONCE IV 03/17/22 23:00 03/17/22 23:56 DC 03/17/22 22:33 Sodium Chloride 1,000 ml @ 1,000 mls/hr 1X ONCE IV 03/18/22 00:30 03/18/22 01:29 DC 03/17/22 22:00 Sodium Chloride 1,000 ml @ 1,000 mls/hr 1X ONCE IV 03/18/22 00:30 03/18/22 01:29 DC 03/18/22 00:02 Famotidine (Pepcid Vial) 20 mg 1X ONCE IVP 03/18/22 00:30 03/18/22 00:31 DC 03/18/22 00:09 Sodium Chloride 1,000 ml @ 150 mls/hr 1X ONCE IV 03/18/22 01:00 03/18/22 07:39 DC 03/18/22 01:11 PE: GEN: NAD HEENT: Atraumatic, PERRLA LUNGS: CTAB HEART: RRR, no murmurs ABD: NABS, S/ND/NT, no masses EXTREMITY: No edema SKIN: No rashes, no jaundice NEURO/PSYCH: A & O 3 A/P: A/P: IMP: Anemia; suspect residual from [facility] admission last month since not on iron. Do not get history suggestive of active acute bleeding. Recent DU, by description chronic. NOT apparently on PPI. S/p cholecystectomy. Hepatic steatosis on past imaging, likely from alcohol. Diverticulosis with prior diverticulitis/perf treated with drain but no resection. REC: PO PPI BID. OK to try diet. Observe for bleeding. Transfuse prn. --other pending. Thanks. KATH TOVAR MD Mar 18, 2022 12:43
--- NOTE | 2022-03-18 13:18 | HP ---
DATE OF SERVICE: 03/18/2022 ADMIT DATE: 03/17/2022 HISTORY OF PRESENT ILLNESS: This patient is a 56-year-old man who is a continuity outpatient of Dr. Abdi who uses the [facility] hospitalist here at [facility], I am rounding for them this weekend. The patient is well known to this service with an admission 4 years ago with perforated diverticulitis and a remnant urachal cyst. He was then seen again here earlier this month with acute inflammatory arthritis, thought to be secondary to gout. He had an admission at [facility] in late December with a bleeding ulcer. There was something wrong with the computer last evening and so he does not have an ER note in yet, but he tells me that he presented to the Emergency Department last night with 1 large hematochezia yesterday afternoon. He is otherwise feeling fine. He says he had no vomiting or nausea. His appetite has been down and he does have occasional mid abdominal pain, was otherwise feeling at baseline. His inflammatory arthritis is improved. He denies that he has not been taking any Motrin, Aleve, ibuprofen, or Naprosyn. He is not sure of his home medication list. All other systems reviewed and otherwise negative. PAST MEDICAL HISTORY: 1. As noted above, patient had an admission here in early February with acute inflammatory arthritis, mostly of his hands, thought to be secondary to a gouty flare. He was treated for the same. Those symptoms have resolved. 2. History of significant alcoholism. He tells me that he has quit drinking about 4 months ago. 3. History of bleeding ulcer, believe he underwent upper endoscopy last at [facility] about 6 weeks ago. MEDICATIONS: Please see the medication reconciliation form. SOCIAL HISTORY: The patient is single. He lives independently in his own home. He is from [facility] and all of his family lives out there. He tells me that he believes they are in good health. He has quit drinking alcohol after many years of drinking. He does smoke about a pack a day of tobacco. He does not use any illicit drugs. FAMILY HISTORY: Reviewed in full and noncontributory to the present illness. PHYSICAL EXAMINATION: VITAL SIGNS: Reviewed since admission and are notable for that the patient has been afebrile. Blood pressure has been in the 90s/50s, heart rate is in the 80s-90s and regular. He is breathing comfortably and saturating normally on room air. GENERAL: The patient is a pleasant 56-year-old man, alert and oriented x3, in no acute distress. HEENT: Unremarkable for acute abnormality. CHEST: Clear to auscultation. HEART: S1, S2 normal. Regular rate and rhythm. No murmurs or gallops are noted. ABDOMEN: Soft, nontender, nondistended. No masses or organomegaly noted. EXTREMITIES: Unremarkable for acute abnormality. LABORATORY AND OTHER STUDIES: Admission hemoglobin is 6.3. He was transfused 1 unit of packed red blood cell, now up to 7.6. He has not had any other episodes of bleeding since admission. White count is 15.8, platelet count is 377. Chemistry panel notable for creatinine of 1.8. He is not sure of his baseline. Potassium is 4.4. Sodium level is 139. Liver function tests are normal. INR is 1.4. Chest x-ray is unremarkable for acute abnormality. The last abdominal imaging at this institution was done in 2018. Liver and pancreas were unremarkable. The remnant urachal bladder cyst was present at that time. Diverticulosis was noted. ASSESSMENT AND PLAN/IMPRESSION: A 56-year-old man admitted with severe anemia secondary to lower gastrointestinal bleed. He appears comfortable and stable at this point. GI has been consulted and their assistance is appreciated. We will have him on intravenous pantoprazole dose twice daily. We will hold his diet until he is seen by GI with a clear plan. Intravenous fluids have been ordered. We will order a repeat hemoglobin later on this afternoon. We will use SCDs for deep venous thrombosis prophylaxis. He appears to be quite comfortable and clinically not consistent with diverticulitis. We will hold off on empiric antibiotic coverage and followup on his white count in the morning. He may need abdominal imaging, but at this point given that he is otherwise comfortable, we will hold off on contrast with the acute renal failure, likely secondary to prerenal azotemia. The patient is a full code. He will need ICU monitoring at least for another 24 hours and then depending on his progress, we can move him up to telemetry. Inpatient stay is most appropriate as we anticipate a length of stay of at least 2-4 midnights while we work this through. FIDEL/PRA/SHADI REAVES: FIDEL/rob TID: [id number] CC: NICOLETTE ABDI MD [facility]
[2022-03-18] MEDS: PANTOPRAZOLE 40 MG TABLET.DR. PO SCH (18:00)
--- NOTE | 2022-03-18 18:29 | NUR ---
Asymptomatic this [address] Ragland in/ explanation of anemia w Rx suggested. Anxious to be up but eports back pain is a problem is self limiting. cont poc
[2022-03-19] VITALS (23 sets, daily range): BP systolic 111–145; BP diastolic 60–79
[2022-03-19] MEDS: IV NORMAL SALINE 1000ML BAG 1,000 ML IV SCH ×2 (00:26→09:15)
[2022-03-19 05:06] LABS: BASO % 1 % (0-3); EOS # 0.1 x10^3/uL (0.0-0.7); EOS % 2 % (0-3); HEMATOCRIT 19.6 % (39.0-53.0); LYMPH # 1.2 x10^3/uL (1.0-4.8); LYMPH % 21 % (24-48); MEAN CORPUSCULAR HEMOGLOBIN 30 pg (25-35); MEAN CORPUSCULAR HGB CONC 34 g/dL (31-37); MEAN CORPUSCULAR VOLUME 87 fL (79-100); MONO # 0.3 x10^3/uL (0.0-1.1); MONO % 6 % (0-9); NEUT % 71 % (31-73); PLATELET COUNT 180 x10^3/uL (140-400); RED BLOOD COUNT 2.26 x10^6/uL (4.30-5.70); RED CELL DISTRIBUTION WIDTH 20.1 % (11.5-14.5); WHITE BLOOD COUNT 5.7 x10^3/uL (4.0-11.0)
[2022-03-19 05:16] LABS: HEMOGLOBIN 6.7 g/dL (13.0-17.5)
[2022-03-19 05:28] LABS: ALBUMIN 1.8 g/dL (3.4-5.0); ALBUMIN/GLOBULIN RATIO 0.6 (1.0-1.7); CALCIUM 7.8 mg/dL (8.5-10.1); CREATININE 1.1 mg/dL (0.7-1.3); GFR 68.8; POTASSIUM 3.9 mmol/L (3.5-5.1); TOTAL BILIRUBIN 0.5 mg/dL (0.2-1.0); TOTAL PROTEIN 4.7 g/dL (6.4-8.2)
[2022-03-19] MEDS ORDERED: ONDANSETRON PF 4 MG/2 ML VIAL. ONE (07:00)
[2022-03-19] MEDS ORDERED: PROPOFOL 10 MG/ML (20ML) VIAL. IV ONE (07:00)
[2022-03-19] MEDS ORDERED: SUCCINYLCHOLINE 200 MG/10 ML VIAL. ONE (07:00)
[2022-03-19] MEDS ORDERED: LIDOCAINE 2% PF 5 ML VIAL. ONE (07:00)
[2022-03-19] MEDS ORDERED: DEXAMETHASONE SOD PHOS 4 MG/ML VIAL ONE (07:00)
[2022-03-19] MEDS ORDERED: fentaNYL PF VIAL 100 MCG/2 ML VIAL ONE (07:01)
[2022-03-19] MEDS ORDERED: ROCURONIUM 50 MG/5 ML VIAL. ONE (07:01)
[2022-03-19] MEDS ORDERED: GLYCOPYRROLATE 1 MG/5 ML VIAL. ONE (07:01)
[2022-03-19] MEDS ORDERED: MIDAZOLAM HCL/PF 2 MG/2 ML VIAL. ONE (07:01)
[2022-03-19] MEDS ORDERED: NEOSTIGMINE METHYLSULFATE 5 MG/5 ML SYRINGE. ONE (07:01)
[2022-03-19] MEDS: PANTOPRAZOLE 40 MG TABLET.DR. PO SCH ×2 (09:15→18:44)
--- NOTE | 2022-03-19 12:20 | PDOC ---
G I PROGRESS NOTE Subjective No complaints. Denies any overt bleeding. Staff note no bleeding. Physical Exam Lungs clear anteriorly. RRR Abdomen soft, not tender nor distended. Review of Relevant I have reviewed the following items negin (where applicable) has been applied. Labs Laboratory Tests Test 03/17/22 22:25 03/18/22 07:15 03/18/22 14:00 03/19/22 04:30 White Blood Count 15.8 x10^3/uL (4.0-11.0) 5.7 x10^3/uL (4.0-11.0) Red Blood Count 2.12 x10^6/uL (4.30-5.70) 2.26 x10^6/uL (4.30-5.70) Hemoglobin 6.3 g/dL (13.0-17.5) 7.6 g/dL (13.0-17.5) 8.1 g/dL (13.0-17.5) 6.7 g/dL (13.0-17.5) Hematocrit 18.9 % (39.0-53.0) 22.4 % (39.0-53.0) 19.6 % (39.0-53.0) Mean Corpuscular Volume 89 fL (79-100) 87 fL (79-100) Mean Corpuscular Hemoglobin 30 pg (25-35) 30 pg (25-35) Mean Corpuscular Hemoglobin Concent 33 g/dL (31-37) 34 g/dL (31-37) 34 g/dL (31-37) Red Cell Distribution Width 20.1 % (11.5-14.5) 20.1 % (11.5-14.5) Platelet Count 377 x10^3/uL (140-400) 180 x10^3/uL (140-400) Neutrophils (%) (Auto) 78 % (31-73) 71 % (31-73) Lymphocytes (%) (Auto) 14 % (24-48) 21 % (24-48) Monocytes (%) (Auto) 7 % (0-9) 6 % (0-9) Eosinophils (%) (Auto) 1 % (0-3) 2 % (0-3) Basophils (%) (Auto) 0 % (0-3) 1 % (0-3) Neutrophils # (Auto) 12.3 x10^3/uL (1.8-7.7) 4.0 x10^3/uL (1.8-7.7) Lymphocytes # (Auto) 2.2 x10^3/uL (1.0-4.8) 1.2 x10^3/uL (1.0-4.8) Monocytes # (Auto) 1.0 x10^3/uL (0.0-1.1) 0.3 x10^3/uL (0.0-1.1) Eosinophils # (Auto) 0.1 x10^3/uL (0.0-0.7) 0.1 x10^3/uL (0.0-0.7) Basophils # (Auto) 0.1 x10^3/uL (0.0-0.2) 0.0 x10^3/uL (0.0-0.2) Platelet Estimate Adequate (ADEQUATE) Anisocytosis Mod Prothrombin Time 16.4 SEC (11.7-14.0) Prothromb Time International Ratio 1.4 (0.8-1.1) Activated Partial Thromboplast Time 35 SEC (24-38) Sodium Level 139 mmol/L (136-145) 139 mmol/L (136-145) Potassium Level 4.4 mmol/L (3.5-5.1) 3.9 mmol/L (3.5-5.1) Chloride Level 106 mmol/L (98-107) 113 mmol/L (98-107) Carbon Dioxide Level 15 mmol/L (21-32) 17 mmol/L (21-32) Anion Gap 18 (6-14) 9 (6-14) Blood Urea Nitrogen 55 mg/dL (8-26) 25 mg/dL (8-26) Creatinine 1.8 mg/dL (0.7-1.3) 1.1 mg/dL (0.7-1.3) Estimated GFR (Cockcroft-Gault) 38.9 68.8 BUN/Creatinine Ratio 31 (6-20) 23 (6-20) Glucose Level 159 mg/dL (70-99) 91 mg/dL (70-99) Calcium Level 8.3 mg/dL (8.5-10.1) 7.8 mg/dL (8.5-10.1) Total Bilirubin 0.4 mg/dL (0.2-1.0) 0.5 mg/dL (0.2-1.0) Aspartate Amino Transf (AST/SGOT) 15 U/L (15-37) 13 U/L (15-37) Alanine Aminotransferase (ALT/SGPT) 23 U/L (16-63) 14 U/L (16-63) Alkaline Phosphatase 65 U/L (46-116) 52 U/L (46-116) Total Protein 5.6 g/dL (6.4-8.2) 4.7 g/dL (6.4-8.2) Albumin 1.9 g/dL (3.4-5.0) 1.8 g/dL (3.4-5.0) Albumin/Globulin Ratio 0.5 (1.0-1.7) 0.6 (1.0-1.7) Laboratory Tests Test 03/18/22 14:00 03/19/22 04:30 Hemoglobin 8.1 g/dL (13.0-17.5) 6.7 g/dL (13.0-17.5) White Blood Count 5.7 x10^3/uL (4.0-11.0) Red Blood Count 2.26 x10^6/uL (4.30-5.70) Hematocrit 19.6 % (39.0-53.0) Mean Corpuscular Volume 87 fL (79-100) Mean Corpuscular Hemoglobin 30 pg (25-35) Mean Corpuscular Hemoglobin Concent 34 g/dL (31-37) Red Cell Distribution Width 20.1 % (11.5-14.5) Platelet Count 180 x10^3/uL (140-400) Neutrophils (%) (Auto) 71 % (31-73) Lymphocytes (%) (Auto) 21 % (24-48) Monocytes (%) (Auto) 6 % (0-9) Eosinophils (%) (Auto) 2 % (0-3) Basophils (%) (Auto) 1 % (0-3) Neutrophils # (Auto) 4.0 x10^3/uL (1.8-7.7) Lymphocytes # (Auto) 1.2 x10^3/uL (1.0-4.8) Monocytes # (Auto) 0.3 x10^3/uL (0.0-1.1) Eosinophils # (Auto) 0.1 x10^3/uL (0.0-0.7) Basophils # (Auto) 0.0 x10^3/uL (0.0-0.2) Sodium Level 139 mmol/L (136-145) Potassium Level 3.9 mmol/L (3.5-5.1) Chloride Level 113 mmol/L (98-107) Carbon Dioxide Level 17 mmol/L (21-32) Anion Gap 9 (6-14) Blood Urea Nitrogen 25 mg/dL (8-26) Creatinine 1.1 mg/dL (0.7-1.3) Estimated GFR (Cockcroft-Gault) 68.8 BUN/Creatinine Ratio 23 (6-20) Glucose Level 91 mg/dL (70-99) Calcium Level 7.8 mg/dL (8.5-10.1) Total Bilirubin 0.5 mg/dL (0.2-1.0) Aspartate Amino Transf (AST/SGOT) 13 U/L (15-37) Alanine Aminotransferase (ALT/SGPT) 14 U/L (16-63) Alkaline Phosphatase 52 U/L (46-116) Total Protein 4.7 g/dL (6.4-8.2) Albumin 1.8 g/dL (3.4-5.0) Albumin/Globulin Ratio 0.6 (1.0-1.7) Some drop in hemoglobin; suspect dilutional. Vitals/I & O Vital Sign - Last 24 Hours 03/18/22 03/18/22 03/18/22 03/18/22 13:00 14:00 15:00 16:00 Pulse 96 88 96 Resp 18 16 20 B/P (MAP) 97/55 (69) 85/59 (68) 113/65 (81) Pulse Ox 100 100 100 O2 Delivery Room Air Room Air Room Air Room Air 03/18/22 03/18/22 03/18/22 03/18/22 16:00 17:00 18:11 18:12 Pulse 98 80 94 Resp 20 18 18 B/P (MAP) 115/55 (75) 109/57 (74) 129/82 (98) Pulse Ox 99 98 100 O2 Delivery Room Air Room Air Room Air 4/03/18/22 03/18/22 03/18/22 19:00 20:00 20:48 21:00 Temp 98.8 98.8 Pulse 81 81 85 Resp 18 18 18 B/P (MAP) 129/73 (91) 119/72 (88) 108/56 (73) Pulse Ox 100 98 100 O2 Delivery Room Air Room Air Room Air Room Air 03/18/22 03/18/22 03/19/22 03/19/22 22:00 23:00 00:00 00:00 Temp 98.5 98.5 Pulse 85 86 82 Resp 18 20 18 B/P (MAP) 110/63 (79) 99/55 (70) 114/62 (79) Pulse Ox 99 99 100 O2 Delivery Room Air Room Air Room Air Room Air 03/19/22 03/19/22 03/19/22 03/19/22 01:00 02:00 03:00 04:00 Pulse 84 88 86 Resp 18 18 18 B/P (MAP) 116/63 (80) 128/60 (82) 121/63 (82) Pulse Ox 98 97 98 O2 Delivery Room Air Room Air Room Air Room Air 03/19/22 03/19/22 03/19/22 03/19/22 04:00 05:00 06:00 08:00 Temp 98.4 98.4 Pulse 84 86 88 Resp 18 18 18 B/P (MAP) 127/79 (95) 114/61 (78) 111/61 (78) Pulse Ox 98 99 99 O2 Delivery Room Air Room Air Room Air Room Air 03/19/22 03/19/22 10:53 11:16 Temp 98.0 98.0 Pulse 81 84 Resp 14 16 B/P (MAP) 122/63 127/79 Intake and Output 03/18/22 03/18/22 03/19/22 15:00 23:00 07:00 Intake Total 240 ml 500 ml 1001 ml Output Total 600 ml 550 ml 500 ml Balance -360 ml -50 ml 501 ml Problem List Problems Medical Problems: (1) Acute GI bleeding Status: Acute (2) Syncope Status: Acute Assessment Anemia; no sgns ongoing bleeding. DU; probably still present as untreated. Plan of Care Note Continue BID PPI. OK for out of ICU. Would leave on clears another day. If continues to take PO well, probably no need for IVF's. Justicifation of Admission Dx: Justifications for Admission: Justification of Admission Dx: Yes KATH TOVAR MD Mar 19, 2022 12:20
--- NOTE | 2022-03-19 15:41 | PDOC ---
GENERAL General: Patient examined chart reviewed no events overnight noted. Patient denies any active bleeding. Hemoglobin dropped from 8.1 yesterday afternoon to 6.7 this morning which may be equilibration. He was transfused 1 unit early this morning. He is frustrated by his situation because feels fine. We appreciate GI consult. They are advancing diet as tolerated. Patient tells me he feels better when he eats which is consistent with his diagnosis of known duodenal ulcer. He does not remember being discharged from [facility] on ulcer regimen. We will need to hold his aspirin for several weeks until this heals. He is clear to move up to the telemetry unit. Repeat labs ordered for the morning. Problems: (1) Acute GI bleeding (2) Duodenal ulcer VITAL SIGNS Vital Signs/I&O: Vital Signs Date Time Temp Pulse Resp B/P (MAP) Pulse Ox O2 Delivery O2 Flow Rate FiO2 03/19/22 11:16 84 16 127/79 03/19/22 10:53 98.0 98.0 03/19/22 08:00 Room Air 03/19/22 06:00 99 I & O 03/18/22 03/18/22 03/19/22 15:00 23:00 07:00 Intake Total 240 ml 500 ml 1001 ml Output Total 600 ml 550 ml 500 ml Balance -360 ml -50 ml 501 ml In general patient is sitting up in his bed resting comfortably without complaint this afternoon HEENT exam is unremarkable for acute abnormality Neck is soft and supple no adenopathy or thyromegaly noted Chest is clear to auscultation Heart S1-S2 normal regular rate and rhythm no murmurs or gallops are noted Abdomen soft nontender nondistended no masses organomegaly noted Extremity exam is unremarkable for acute abnormality ALLERGIES Allergies: Allergies Coded Allergies Type Severity Reaction Last Updated Verified No Known Drug Allergies 03/17/22 No MEDS Medications: Current Medications Medications (Trade) Dose Ordered Sig/Galdino Start Time Stop Time Status Last Admin Dose Admin Dexamethasone Sodium Phosphate (Decadron) 4 mg STK-MED ONCE 03/19/22 07:00 03/19/22 07:01 DC Famotidine (Pepcid Vial) 20 mg 1X ONCE 03/18/22 00:30 03/18/22 00:31 DC 03/18/22 00:09 Fentanyl Citrate (Fentanyl 2ml Vial) 100 mcg STK-MED ONCE 03/19/22 07:01 03/19/22 07:01 DC Glycopyrrolate (Robinul) 1 mg STK-MED ONCE 03/19/22 07:01 03/19/22 07:02 DC Lidocaine HCl (Lidocaine Pf 2% Vial) 5 ml STK-MED ONCE 03/19/22 07:00 03/19/22 07:01 DC Midazolam HCl (Versed) 2 mg STK-MED ONCE 03/19/22 07:01 03/19/22 07:02 DC Neostigmine Aurora (Neostigmine Methylsulfate) 5 mg STK-MED ONCE 03/19/22 07:01 03/19/22 07:01 DC Ondansetron HCl (Zofran) 4 mg STK-MED ONCE 03/19/22 07:00 03/19/22 07:01 DC Pantoprazole Sodium (PROTONIX VIAL for IV PUSH) 40 mg BID 03/18/22 11:00 03/18/22 12:45 DC Pantoprazole Sodium (Protonix) 40 mg BID AC 03/18/22 17:30 03/19/22 09:15 Propofol (Diprivan) 200 mg STK-MED ONCE 03/19/22 07:00 03/19/22 07:01 DC Rocuronium Aurora (Zemuron) 50 mg STK-MED ONCE 03/19/22 07:01 03/19/22 07:01 DC Sodium Chloride 1,000 ml @ 100 mls/hr Q10H 03/18/22 11:00 03/19/22 09:15 Succinylcholine Chloride (Anectine) 200 mg STK-MED ONCE 03/19/22 07:00 03/19/22 07:01 DC Current Medications Medications (Trade) Dose Ordered Sig/Galdino Route PRN Reason Start Time Stop Time Status Last Admin Dose Admin Pantoprazole Sodium (Protonix) 40 mg BID AC PO 03/18/22 17:30 03/19/22 09:15 LAB Lab: Laboratory Tests Test 03/19/22 04:30 White Blood Count 5.7 x10^3/uL (4.0-11.0) Red Blood Count 2.26 x10^6/uL (4.30-5.70) L Hemoglobin 6.7 g/dL (13.0-17.5) *L Hematocrit 19.6 % (39.0-53.0) L Mean Corpuscular Volume 87 fL (79-100) Mean Corpuscular Hemoglobin 30 pg (25-35) Mean Corpuscular Hemoglobin Concent 34 g/dL (31-37) Red Cell Distribution Width 20.1 % (11.5-14.5) H Platelet Count 180 x10^3/uL (140-400) Neutrophils (%) (Auto) 71 % (31-73) Lymphocytes (%) (Auto) 21 % (24-48) L Monocytes (%) (Auto) 6 % (0-9) Eosinophils (%) (Auto) 2 % (0-3) Basophils (%) (Auto) 1 % (0-3) Neutrophils # (Auto) 4.0 x10^3/uL (1.8-7.7) Lymphocytes # (Auto) 1.2 x10^3/uL (1.0-4.8) Monocytes # (Auto) 0.3 x10^3/uL (0.0-1.1) Eosinophils # (Auto) 0.1 x10^3/uL (0.0-0.7) Basophils # (Auto) 0.0 x10^3/uL (0.0-0.2) Sodium Level 139 mmol/L (136-145) Potassium Level 3.9 mmol/L (3.5-5.1) Chloride Level 113 mmol/L (98-107) H Carbon Dioxide Level 17 mmol/L (21-32) L Anion Gap 9 (6-14) Blood Urea Nitrogen 25 mg/dL (8-26) Creatinine 1.1 mg/dL (0.7-1.3) Estimated GFR (Cockcroft-Gault) 68.8 BUN/Creatinine Ratio 23 (6-20) H Glucose Level 91 mg/dL (70-99) Calcium Level 7.8 mg/dL (8.5-10.1) L Total Bilirubin 0.5 mg/dL (0.2-1.0) Aspartate Amino Transferase (AST) 13 U/L (15-37) L Alanine Aminotransferase (ALT) 14 U/L (16-63) L Alkaline Phosphatase 52 U/L (46-116) Total Protein 4.7 g/dL (6.4-8.2) L Albumin 1.8 g/dL (3.4-5.0) L Albumin/Globulin Ratio 0.6 (1.0-1.7) L Laboratory Tests 03/19/22 04:30 Laboratory Tests 03/19/22 04:30 ASSESSMENT & PLAN A&P Plan as noted above This note was created using [employer] and may have omissions and/or errors due to the 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 Justifications for Admission Other Justification FACUNDO WEST MD Mar 19, 2022 15:41
--- NOTE | 2022-03-19 16:36 | NUR ---
1 unit blood infused per order. Questions answered by Dr Ragland explaining anemia,Rx & pos cause of low Hct( dilution RT increase IVF mentioned) this am. Reluctant to be OOB. Informed patient of trans to [facility] bed. Will let know when bed available. Diet to remain same 03/19, unhappy .IVF stopped per order.
[2022-03-19] MEDS: ZOLPIDEM 5 MG TABLET. PO PRN (22:01)
[2022-03-20] VITALS (7 sets, daily range): BP systolic 108–175; BP diastolic 61–90
[2022-03-20 05:14] LABS: BASO % 0 % (0-3); EOS # 0.1 x10^3/uL (0.0-0.7); EOS % 2 % (0-3); HEMATOCRIT 26.5 % (39.0-53.0); HEMOGLOBIN 9.1 g/dL (13.0-17.5); LYMPH # 0.9 x10^3/uL (1.0-4.8); LYMPH % 16 % (24-48); MEAN CORPUSCULAR HEMOGLOBIN 30 pg (25-35); MEAN CORPUSCULAR HGB CONC 34 g/dL (31-37); MEAN CORPUSCULAR VOLUME 87 fL (79-100); MONO # 0.4 x10^3/uL (0.0-1.1); MONO % 7 % (0-9); NEUT # 4.3 x10^3/uL (1.8-7.7); NEUT % 75 % (31-73); PLATELET COUNT 172 x10^3/uL (140-400); RED BLOOD COUNT 3.06 x10^6/uL (4.30-5.70); RED CELL DISTRIBUTION WIDTH 18.2 % (11.5-14.5); WHITE BLOOD COUNT 5.8 x10^3/uL (4.0-11.0)
[2022-03-20 05:36] LABS: ALBUMIN 1.8 g/dL (3.4-5.0); ALBUMIN/GLOBULIN RATIO 0.5 (1.0-1.7); CALCIUM 8.1 mg/dL (8.5-10.1); CREATININE 1.1 mg/dL (0.7-1.3); GFR 68.8; POTASSIUM 3.5 mmol/L (3.5-5.1); TOTAL BILIRUBIN 0.7 mg/dL (0.2-1.0); TOTAL PROTEIN 5.1 g/dL (6.4-8.2)
[2022-03-20] MEDS: PANTOPRAZOLE 40 MG TABLET.DR. PO SCH ×2 (06:15→17:18)
[2022-03-20] MEDS: METOPROLOL SUCC 24HR ER 50 MG TAB.ER.24H. PO SCH (07:54)
--- NOTE | 2022-03-20 07:57 | PDOC ---
[employer] PROGRESS NOTE Date of Service DOS: DATE: 03/20/22 TIME: 07:51 Chief Complaint Chief Complaint Acute Anemia - likely rebleed Peptic ulcer disease - with duodenal ulcer that sounds to be chronic Hepatic steatosis Diverticulosis History of Present Illness History of Present Illness Mr Vazquez is a 56 y/o male presented to ER after weakness and possible syncopal episode at home. Having some dark stools, notably admitted to [facility] late December into January with melena. Initial EGD with duodenal ulcer and clot, unable to wash off or inject with epinephrine. Despite 2 EGDs. No varices on EGD's. Did use PeptoBismol on Sunday for some non-specific dyspepsia. No N, V, hematemesis nor hematochezia. Has had imaging c/w hepatic steatosis, but no cirrhosis. Prior alcoholic pancreatitis. Non-smoker. Has been alcohol abuser, but quit 4 months ago. No diarrhea or constipation. Last seen by us here in 2018 when admitted with perforated diverticulitis; had drain, but no resection. Still with Hb of 6.3 WBC 15.8. Typed and screened and admitted to ICU for further care with gastroenterology consultation 03/20: Hb 9.1 CR 1.1. No dizziness at this time. Seen bedside in ICU. Asking for more to eat Vitals/I&O Vitals/I&O: Vital Signs Date Time Temp Pulse Resp B/P (MAP) Pulse Ox O2 Delivery O2 Flow Rate FiO2 03/20/22 07:50 98.6 90 18 112/79 (90) 99 Room Air 98.6 I & O 03/19/22 03/19/22 03/20/22 15:00 23:00 07:00 Intake Total 920 ml 120 ml 0 ml Output Total 300 ml 620 ml 750 ml Balance 620 ml -500 ml -750 ml Physical Exam General: Alert, Oriented X3, Cooperative Heart: Regular rate Lungs: Clear Labs Labs: Laboratory Tests Test 03/20/22 04:50 White Blood Count 5.8 x10^3/uL (4.0-11.0) Red Blood Count 3.06 x10^6/uL (4.30-5.70) Hemoglobin 9.1 g/dL (13.0-17.5) Hematocrit 26.5 % (39.0-53.0) Mean Corpuscular Volume 87 fL (79-100) Mean Corpuscular Hemoglobin 30 pg (25-35) Mean Corpuscular Hemoglobin Concent 34 g/dL (31-37) Red Cell Distribution Width 18.2 % (11.5-14.5) Platelet Count 172 x10^3/uL (140-400) Neutrophils (%) (Auto) 75 % (31-73) Lymphocytes (%) (Auto) 16 % (24-48) Monocytes (%) (Auto) 7 % (0-9) Eosinophils (%) (Auto) 2 % (0-3) Basophils (%) (Auto) 0 % (0-3) Neutrophils # (Auto) 4.3 x10^3/uL (1.8-7.7) Lymphocytes # (Auto) 0.9 x10^3/uL (1.0-4.8) Monocytes # (Auto) 0.4 x10^3/uL (0.0-1.1) Eosinophils # (Auto) 0.1 x10^3/uL (0.0-0.7) Basophils # (Auto) 0.0 x10^3/uL (0.0-0.2) Sodium Level 139 mmol/L (136-145) Potassium Level 3.5 mmol/L (3.5-5.1) Chloride Level 110 mmol/L (98-107) Carbon Dioxide Level 18 mmol/L (21-32) Anion Gap 11 (6-14) Blood Urea Nitrogen 15 mg/dL (8-26) Creatinine 1.1 mg/dL (0.7-1.3) Estimated GFR (Cockcroft-Gault) 68.8 BUN/Creatinine Ratio 14 (6-20) Glucose Level 92 mg/dL (70-99) Calcium Level 8.1 mg/dL (8.5-10.1) Total Bilirubin 0.7 mg/dL (0.2-1.0) Aspartate Amino Transf (AST/SGOT) 10 U/L (15-37) Alanine Aminotransferase (ALT/SGPT) 17 U/L (16-63) Alkaline Phosphatase 64 U/L (46-116) Total Protein 5.1 g/dL (6.4-8.2) Albumin 1.8 g/dL (3.4-5.0) Albumin/Globulin Ratio 0.5 (1.0-1.7) Assessment and Plan Assessmemt and Plan Problems Medical Problems: (1) Acute GI bleeding Status: Acute (2) Syncope Status: Acute Comment Review of Relevant I have reviewed the following items negin (where applicable) has been applied. Medications: Current Medications Medications (Trade) Dose Ordered Sig/Galdino Route PRN Reason Start Time Stop Time Status Last Admin Dose Admin Zolpidem Tartrate (Ambien) 5 mg PRN QHS PRN PO INSOMNIA 03/19/22 21:15 03/19/22 22:01 Justifications for Admission Other Justification ZULEIKA WELCH MD Mar 20, 2022 07:57
--- NOTE | 2022-03-20 09:17 | PDOC ---
Date of Service: DATE: 03/20/22 TIME: 09:15 Subjective: Subjective: Hungry. No abd pain, no bleeding, no stools. Objective: Objective: D/w nurse - pt wants to advance diet. No bleeding, no GI concerns. Vital Signs: Vital Signs Date Time Temp Pulse Resp B/P (MAP) Pulse Ox O2 Delivery O2 Flow Rate FiO2 03/20/22 07:54 90 112/79 03/20/22 07:50 98.6 18 99 Room Air 98.6 Labs: Laboratory Tests Test 03/20/22 04:50 White Blood Count 5.8 x10^3/uL Red Blood Count 3.06 x10^6/uL Hemoglobin 9.1 g/dL Hematocrit 26.5 % Mean Corpuscular Volume 87 fL Mean Corpuscular Hemoglobin 30 pg Mean Corpuscular Hemoglobin Concent 34 g/dL Red Cell Distribution Width 18.2 % Platelet Count 172 x10^3/uL Neutrophils (%) (Auto) 75 % Lymphocytes (%) (Auto) 16 % Monocytes (%) (Auto) 7 % Eosinophils (%) (Auto) 2 % Basophils (%) (Auto) 0 % Neutrophils # (Auto) 4.3 x10^3/uL Lymphocytes # (Auto) 0.9 x10^3/uL Monocytes # (Auto) 0.4 x10^3/uL Eosinophils # (Auto) 0.1 x10^3/uL Basophils # (Auto) 0.0 x10^3/uL Sodium Level 139 mmol/L Potassium Level 3.5 mmol/L Chloride Level 110 mmol/L Carbon Dioxide Level 18 mmol/L Anion Gap 11 Blood Urea Nitrogen 15 mg/dL Creatinine 1.1 mg/dL Estimated GFR (Cockcroft-Gault) 68.8 BUN/Creatinine Ratio 14 Glucose Level 92 mg/dL Calcium Level 8.1 mg/dL Total Bilirubin 0.7 mg/dL Aspartate Amino Transf (AST/SGOT) 10 U/L Alanine Aminotransferase (ALT/SGPT) 17 U/L Alkaline Phosphatase 64 U/L Total Protein 5.1 g/dL Albumin 1.8 g/dL Albumin/Globulin Ratio 0.5 PE: GEN: NAD, drinking clear liquids LUNGS: CTAB HEART: RRR ABD: NABS, S/ND/NT NEURO/PSYCH: A & O 3 A/P: Anemia - improved w/ transfusions H/o DU -- Advance diet as tolerated - d/w pt and nurse. Continue PPI BID. Justicifation of Admission Dx: Justifications for Admission: Justification of Admission Dx: Yes NELLY GONSALVES Mar 20, 2022 09:17
[2022-03-20] MEDS: ZOLPIDEM 5 MG TABLET. PO PRN (20:39)
[2022-03-21 03:00] VITALS: BP 127/76
[2022-03-21 07:00] VITALS: BP 136/90
[2022-03-21] MEDS: PANTOPRAZOLE 40 MG TABLET.DR. PO SCH (07:48)
[2022-03-21 07:53] LABS: HEMATOCRIT 25.9 % (39.0-53.0); HEMOGLOBIN 8.8 g/dL (13.0-17.5)
[2022-03-21] MEDS: METOPROLOL SUCC 24HR ER 50 MG TAB.ER.24H. PO SCH (09:25)
--- NOTE | 2022-03-21 09:34 | PDOC ---
[employer] PROGRESS NOTE Date of Service DOS: DATE: 03/21/22 TIME: 09:33 Chief Complaint Chief Complaint Acute Anemia - likely rebleed Peptic ulcer disease - with duodenal ulcer that sounds to be chronic Hepatic steatosis Diverticulosis History of alcohol issues (he states he quit drinking a couple months ago) History of Present Illness History of Present Illness 03/21/2022 Patient seen and examined Discussed with RN Chart reviewed He seems to be stable for discharge We will go ahead and discharge Mr Vazquez is a 56 y/o male presented to ER after weakness and possible syncopal episode at home. Having some dark stools, notably admitted to [facility] late December into January with melena. Initial EGD with duodenal ulcer and clot, unable to wash off or inject with epinephrine. Despite 2 EGDs. No varices on EGD's. Did use PeptoBismol on Sunday for some non-specific dyspepsia. No N, V, hematemesis nor hematochezia. Has had imaging c/w hepatic steatosis, but no cirrhosis. Prior alcoholic pancreatitis. Non-smoker. Has been alcohol abuser, but quit 4 months ago. No diarrhea or constipation. Last seen by us here in 2018 when admitted with perforated diverticulitis; had drain, but no resection. Still with Hb of 6.3 WBC 15.8. Typed and screened and admitted to ICU for further care with gastroenterology consultation 03/20: Hb 9.1 CR 1.1. No dizziness at this time. Seen bedside in ICU. Asking for more to eat Vitals/I&O Vitals/I&O: Vital Signs Date Time Temp Pulse Resp B/P (MAP) Pulse Ox O2 Delivery O2 Flow Rate FiO2 03/21/22 09:25 98 136/90 03/21/22 07:00 98.5 18 96 Room Air 98.5 I & O 03/20/22 03/20/22 03/21/22 15:00 23:00 07:00 Intake Total 1080 ml 240 ml Output Total 150 ml Balance 930 ml 240 ml Physical Exam General: Alert, Oriented X3, Cooperative Heart: Regular rate Lungs: Clear Labs Labs: Laboratory Tests Test 03/21/22 07:00 Hemoglobin 8.8 g/dL (13.0-17.5) Hematocrit 25.9 % (39.0-53.0) Mean Corpuscular Hemoglobin Concent 34 g/dL (31-37) Assessment and Plan Assessmemt and Plan Problems Medical Problems: (1) Acute GI bleeding Status: Acute (2) Syncope Status: Acute Acute Anemia - likely rebleed Peptic ulcer disease - with duodenal ulcer that sounds to be chronic Hepatic steatosis Diverticulosis History of alcohol issues (he states he quit drinking a couple months ago) Plan Discharge see dictation Comment Review of Relevant I have reviewed the following items negin (where applicable) has been applied. Justifications for Admission Other Justification NIKKI OCAMPO III DO Mar 21, 2022 09:34
[2022-03-21] MEDS ORDERED: PANT40TA77 PO (09:35)
--- NOTE | 2022-03-21 09:47 | DS ---
DATE OF DISCHARGE: 03/21/2022 ADMISSION DIAGNOSIS: Gastrointestinal bleed. DISCHARGE DIAGNOSES: Resolving gastrointestinal bleed, history of duodenal ulcer, history of alcohol issues, history of hepatic steatosis, diverticulosis. CONSULTATIONS: GI. PROCEDURES: None. HOSPITAL COURSE: The patient is a pleasant middle-aged male who presented with GI bleed. We admitted him. He was in the ICU. We transfused him. We consulted GI. Gave him IV proton pump inhibitors. Today, his hemoglobin is stable at 8.8. He is doing well and wants to go home. I discussed the case with case management and the nurse. We plan to discharge on proton pump inhibitors. DISPOSITION: Home. ACTIVITY: As tolerated. DIET: Low sodium. DISCHARGE MEDICATIONS: Please see the MRAD. Protonix 40 mg p.o. b.i.d., aspirin 81 mg a day and metoprolol 50 mg daily. Total time [address]: Roberth TID: [id number]
--- NOTE | 2022-03-21 10:25 | PDOC ---
Date of Service: DATE: 03/21/22 TIME: 10:20 Subjective: Subjective: Tolerating diet. Small dark stool yesterday - thinks leftover bleeding maybe. Has some pain in middle finger - reports h/o gout and maybe RA. Objective: Vital Signs: Vital Signs Date Time Temp Pulse Resp B/P (MAP) Pulse Ox O2 Delivery O2 Flow Rate FiO2 03/21/22 09:25 98 136/90 03/21/22 08:00 Room Air 03/21/22 07:00 98.5 18 96 98.5 Labs: Laboratory Tests Test 03/21/22 07:00 Hemoglobin 8.8 g/dL Hematocrit 25.9 % Mean Corpuscular Hemoglobin Concent 34 g/dL PE: GEN: NAD LUNGS: CTAB HEART: RRR ABD: S/ND/NT NEURO/PSYCH: A & O 3 A/P: Anemia - improved/stable H/o DU -- DC per primary. Continue PPI - confirmed Rx was left per primary. F/u re: H. pylori stool antigen. Justicifation of Admission Dx: Justifications for Admission: Justification of Admission Dx: Yes NELLY GONSALVES Mar 21, 2022 10:25
[2022-03-21 11:00] VITALS: BP 115/81
--- NOTE | 2022-03-21 12:53 | NUR ---
Discharge Note: JOSEP GALAVIZ Discharge instructions and discharge home medications reviewed with Patient and a copy given. All questions have been answered and understanding verbalized. The following instructions and handouts were given: discharge instructions, new prescription, education and follow up recommendation. Discontinued lines and drains: Peripheral IV discontinued intact. Patient discharged to Home or Self Care with Family Member via Wheelchair off unit by KENZIE
== END 2022-03-21 12:53 | disposition home or self-care (01) | DRG 377 ==
LOC: ER 22:06 → 1 WEST ICU 23:38 → 5 NORTH 03-18 00:24
PROVIDERS: ADMIT Internal Medicine; ATTEND Internal Medicine
PROC: 30233N1 Transfusion of Nonautologous Red Blood Cells into Peripheral Vein, Percutaneous Approach (ICD-10-PCS; principal; 2022-03-18)
DX: K26.4 Chronic or unspecified duodenal ulcer with hemorrhage (principal); E43 Unspecified severe protein-calorie malnutrition; K57.91 Diverticulosis of intestine, part unspecified, without perforation or abscess with bleeding; I95.89 Other hypotension; F10.10 Alcohol abuse, uncomplicated; D64.9 Anemia, unspecified; F17.210 Nicotine dependence, cigarettes, uncomplicated; I10 Essential (primary) hypertension; K76.0 Fatty (change of) liver, not elsewhere classified
CPT/HCPCS: 36415; 36430; 71045; 80053; 85014; 85018; 85025; 85610; 85730; 86850; 86900; 86901; 86920; 93005; 96361; 96374; 96375; J0330; J1100; J2250; J2405; J2704; J2710; J3010; J3490; J7030; P9016; 99285-25; G0378